=== PATIENT | female | born 1965 | race Caucasian/White ===

== ENCOUNTER → 2017-05-18 | Outpatient (CLI) | payer OTHER ==
[~2017-05-18] MED LIST: ACET-2267 PO; ACHD5005 PO; AMOX500C2 PO; ATEN-155 PO; AZTH250C PO; ENAL2.5T PO; FURO40TA4 PO; GUAI118L10 PO; IBUP-30 PO; IPRA15SP2 NS; LOVA20TA2 PO; METO-333 PO; METO25TA PO; MTF500T PO; MULT1CAP27 PO; MUPI22OI TOP; POTA10TA PO; POTA10TA36 PO; PRD20T PO; SULF200O PO; [UNRECOGNIZED DRUG - CODE] IJ; metformin
== END ==
LOC: CARD 14:59
PROVIDERS: ATTEND Internal Medicine Cardiovascular Disease
DX: I25.10 Atherosclerotic heart disease of native coronary artery without angina pectoris (principal); E13.9 Other specified diabetes mellitus without complications; R06.00 Dyspnea, unspecified; I10 Essential (primary) hypertension; E78.2 Mixed hyperlipidemia
CPT/HCPCS: 93306

== ENCOUNTER 2018-10-02 12:30 | Emergency (ER) | payer SELFPAY ==
[~2018-10-02] VITALS: Ht 170.2 cm; Wt 86.2 kg
--- OUTSIDE RECORDS SUMMARY | 2018-10-02 12:36 | XMS REPORT ---
Author Author DORA ROMERO [facility] Address [address] [place] [address] Care Team Providers Care Shoe Lay Out Planner Name Role Phone DORA ROMERO Unavailable PROBLEMS Type Condition ICD9-CM Code VUJ34-GD Code Onset Dates Condition Status SNOMED Code Problem CHF (congestive heart failure) I50.9 Active 28567690 Problem Non-ischemic cardiomyopathy I42.9 Active [id number] ALLERGIES No Information ENCOUNTERS Encounter Location Date Diagnosis [facility] [id number] [place] [address] 78812- 4825 Dec, CHF (congestive heart failure) I50.9 [facility] [id number] [place] [address] 29870- 5108 Oct, [facility] [id number] [place] [address] 29675- 4620 Aug, CHF (congestive heart failure) I50.9 [facility] [id number] [place] [address] 70874- 9293 22 Aug, 2017 Dysuria R30.0 and Acute cystitis without hematuria N30.00 [facility] [id number] [place] [address] 85480- 5224 15 Aug, 2017 CHF (congestive heart failure) I50.9 [facility] [id number] [place] [address] 26406- 7091 Jul, CHF (congestive heart failure) I50.9 [facility] [id number] [place] [address] 35322- 7174 Jun, CHF (congestive heart failure) I50.9 [facility] [id number] [place] [address] 70234- 4602 Jun, CHF (congestive heart failure) I50.9 [facility] [address] [place] [address] 13718- 5787 May, CHF (congestive heart failure) I50.9 [facility] [id number] [place] [address] 45151- 8427 Apr, CHF (congestive heart failure) I50.9 [facility] [id number] [place] [address] 95358- 8273 Dec, CHF (congestive heart failure) I50.9 and Non-ischemic cardiomyopathy I42.9 [facility] [id number] [place] [address] 64681- 7727 Dec, CHF (congestive heart failure) I50.9 and Non-ischemic cardiomyopathy I42.9 [facility] [id number] [place] [address] 61188- 7521 Oct, Non-ischemic cardiomyopathy I42.9 and CHF (congestive heart failure) I50.9 [facility] [id number] [place] [address] 92542- 3205 Oct, [facility] [id number] [place] [address] 62714- 5384 Aug, CHF (congestive heart failure) I50.9 ; Non-ischemic cardiomyopathy I42.9 and Hidradenitis axillaris L73.2 [facility] [id number] [place] [address] 11362- 0999 Jul, [facility] [id number] [place] [address] 18996- 9595 May, Nasal congestion R09.81 ; Wheezing R06.2 and Hidradenitis axillaris L73.2 [facility] [id number] [place] [address] 53787- 9989 Mar, [facility] [id number] [place] [address] 02972- 6052 Dec, [facility] [id number] [address]- 5127 Dec, CHF (congestive heart failure) I50.9 and Non-ischemic cardiomyopathy I42.9 [facility] [address] [place] [address]- 0119 Aug, [facility] [address] [place] [address]- 0397 Aug, CHF (congestive heart failure) I50.9 and Non-ischemic cardiomyopathy I42.9 [facility] [address] [place] [address]- 6467 Oct, [facility] [address] [place] [address]- 2309 Oct, [facility] [address] [place] [address]- 9347 Aug, [facility] [address] [place] [address]- 8406 Aug, [facility] [address] [place] [address]- 8530 Aug, [facility] [address] [address]- 0472 Aug, IMMUNIZATIONS No Known Immunizations SOCIAL HISTORY Never Assessed REASON FOR VISIT Repository Medication PLAN OF CARE VITAL SIGNS MEDICATIONS Medication Instructions Dosage Frequency Start Date End Date Duration Status Furosemide 40 mg Orally Once a day 1 tablet 24h Active Losartan Potassium 25 MG Orally Once a day 1 tablet 24h Jun, Active Metoprolol Tartrate 25 MG Orally Twice a day 1 tablet with food 12h Active RESULTS No Results PROCEDURES No Known procedures INSTRUCTIONS MEDICATIONS ADMINISTERED No Known Medications MEDICAL (GENERAL) HISTORY Type Description Date Medical History CHF Medical History type II diabetes Medical History hypertension Surgical History cleft pallet repair Surgical History tonsillectomy Surgical History Surgical History tubal ligation Hospitalization History Hospitalization History childbirth x 3 Hospitalization History CHF
--- OUTSIDE RECORDS SUMMARY | 2018-10-02 12:36 | XMS REPORT ---
Author Author DORA ROMERO [facility] Address [address] [place] [address] Care Team Providers Care Sonar Watchstander Name Role Phone DORA ROMERO Unavailable PROBLEMS Type Condition ICD9-CM Code JIO21-SU Code Onset Dates Condition Status SNOMED Code Problem CHF (congestive heart failure) I50.9 Active [id number] Problem Non-ischemic cardiomyopathy I42.9 Active [id number] ALLERGIES No Information ENCOUNTERS Encounter Location Date Diagnosis [facility] [address] 87951- 0008 Apr, [facility] [address] 75830- 1877 Apr, CHF (congestive heart failure) I50.9 [facility] [address] 92572- 2604 Mar, [facility] [address] 67921- 8814 Dec, CHF (congestive heart failure) I50.9 [facility] [id number] [place] [address] 64862- 7462 Oct, [facility] [address] 98032- 8526 Aug, CHF (congestive heart failure) I50.9 [facility] [address] 98931- 1975 Aug, Dysuria R30.0 and Acute cystitis without hematuria N30.00 [facility] [id number] [place] [address] 41255- 9465 Aug, CHF (congestive heart failure) I50.9 [facility] [address], [place] [address]- 4928 Jul, CHF (congestive heart failure) I50.9 [facility] [address], [place] [address]- 0466 Jun, CHF (congestive heart failure) I50.9 [facility] [address], [place] [address]- 6826 Jun, CHF (congestive heart failure) I50.9 [facility] [id number] [address]- 4995 May, CHF (congestive heart failure) I50.9 [facility] [id number] [place] [address] 08244- 6286 Apr, CHF (congestive heart failure) I50.9 [facility] [address] [place] [address] 01536- 0787 Dec, CHF (congestive heart failure) I50.9 and Non-ischemic cardiomyopathy I42.9 [facility] [address], [place] [address]- 6295 Dec, CHF (congestive heart failure) I50.9 and Non-ischemic cardiomyopathy I42.9 [facility] [address], [place] [address]- 8708 Oct, Non-ischemic cardiomyopathy I42.9 and CHF (congestive heart failure) I50.9 [facility] [address], [place] [address]- 4180 Oct, [facility] [address], [place] [address]- 2799 Aug, CHF (congestive heart failure) I50.9 ; Non-ischemic cardiomyopathy I42.9 and Hidradenitis axillaris L73.2 [facility] [address], [place] [address]- 9875 Jul, [facility] [id number] [place] [address] 54899- 2587 May, Nasal congestion R09.81 ; Wheezing R06.2 and Hidradenitis axillaris L73.2 [facility] [id number] [place] [address] 45341- 1937 Mar, [facility] [id number] [place] [address] 13651- 5832 Dec, [facility] [id number] [place] [address] 87386- 9903 Dec, CHF (congestive heart failure) I50.9 and Non-ischemic cardiomyopathy I42.9 [facility] [address] 36719- 4498 Aug, [facility] [id number] [place] [address] 31093- 5359 Aug, CHF (congestive heart failure) I50.9 and Non-ischemic cardiomyopathy I42.9 [facility] [id number] [place] [address] 56184- 5695 Oct, [facility] [id number] [place] [address] 18668- 8699 Oct, [facility] [id number] [place] [address] 94232- 7834 Aug, [facility] [id number] [place] [address] 89678- 4020 Aug, [facility] [id number] [place] [address] 44857- 3333 Aug, [facility] [id number] [place] [address] 86956- 5144 Aug, IMMUNIZATIONS No Known Immunizations SOCIAL HISTORY Never Assessed REASON FOR VISIT Repository Medication PLAN OF CARE VITAL SIGNS MEDICATIONS Medication Instructions Dosage Frequency Start Date End Date Duration Status Metoprolol Tartrate 25 MG Orally Twice a day 1 tablet with food 12h Active Potassium Chloride Karmen ER 10 MEQ Orally Once a day 1 tablet with food 24h Active Furosemide 40 mg Orally Once a day 1 tablet 24h Active Losartan Potassium 25 MG Orally Once a day 1 tablet 24h Jun, Active RESULTS No Results PROCEDURES No Known procedures INSTRUCTIONS MEDICATIONS ADMINISTERED No Known Medications MEDICAL (GENERAL) HISTORY Type Description Date Medical History CHF Medical History type II diabetes Medical History hypertension Surgical History cleft pallet repair Surgical History tonsillectomy Surgical History Surgical History tubal ligation Hospitalization History Hospitalization History childbirth x 3 Hospitalization History CHF
--- OUTSIDE RECORDS SUMMARY | 2018-10-02 12:36 | XMS REPORT ---
Author Author DORA ROMERO [facility] Address [address] [place] [address] Care Team Providers Care Salesperson Terrazzo T[employer] Name Role Phone DORA ROMERO Unavailable PROBLEMS Type Condition ICD9-CM Code DFF04-OG Code Onset Dates Condition Status SNOMED Code Problem CHF (congestive heart failure) I50.9 Active 85778125 Problem Non-ischemic cardiomyopathy I42.9 Active 58421255 ALLERGIES No Information ENCOUNTERS Encounter Location Date Diagnosis [facility] [id number] [place] [address] 02028- 5916 Dec, CHF (congestive heart failure) I50.9 [facility] [id number] [place] [address] 95301- 1581 Oct, [facility] [id number] [place] [address] 36836- 5958 Aug, CHF (congestive heart failure) I50.9 [facility] [id number] [place] [address] 20383- 3236 22 Aug, 2017 Dysuria R30.0 and Acute cystitis without hematuria N30.00 [facility] [id number] [place] [address] 75276- 8977 15 Aug, 2017 CHF (congestive heart failure) I50.9 [facility] [id number] [place] [address] 96887- 6610 Jul, CHF (congestive heart failure) I50.9 [facility] [id number] [place] [address] 87186- 3695 Jun, CHF (congestive heart failure) I50.9 [facility] [id number] [place] [address] 83367- 6843 Jun, CHF (congestive heart failure) I50.9 [facility] [address] [place] [address] 32687- 0985 May, CHF (congestive heart failure) I50.9 [facility] [id number] [place] [address] 09629- 9460 Apr, CHF (congestive heart failure) I50.9 [facility] [id number] [place] [address] 82191- 0901 Dec, CHF (congestive heart failure) I50.9 and Non-ischemic cardiomyopathy I42.9 [facility] [id number] [place] [address] 87590- 5642 Dec, CHF (congestive heart failure) I50.9 and Non-ischemic cardiomyopathy I42.9 [facility] [id number] [place] [address] 67820- 6908 Oct, Non-ischemic cardiomyopathy I42.9 and CHF (congestive heart failure) I50.9 [facility] [id number] [place] [address] 83463- 3131 Oct, [facility] [id number] [place] [address] 20608- 7494 Aug, CHF (congestive heart failure) I50.9 ; Non-ischemic cardiomyopathy I42.9 and Hidradenitis axillaris L73.2 [facility] [id number] [place] [address] 22602- 8291 Jul, [facility] [id number] [place] [address] 34986- 7935 May, Nasal congestion R09.81 ; Wheezing R06.2 and Hidradenitis axillaris L73.2 [facility] [address] [place] [address] 64070- 9981 Mar, [facility] [id number] [place] [address] 34558- 4189 Dec, [facility] [address], [place] [address]- 1988 Dec, CHF (congestive heart failure) I50.9 and Non-ischemic cardiomyopathy I42.9 [facility] [address], [place] [address]- 0505 Aug, [facility] [address], [place] [address]- 0002 Aug, CHF (congestive heart failure) I50.9 and Non-ischemic cardiomyopathy I42.9 [facility] [address], [place] [address]- 0694 Oct, [facility] [address] [place] [address] 48164- 2720 Oct, [facility] [address] [place] [address] 37586- 1879 Aug, [facility] [address], [place] [address]- 1031 Aug, [facility] [address], [place] [address]- 9508 Aug, [facility] [address], [place] [address]- 1495 Aug, IMMUNIZATIONS No Known Immunizations SOCIAL HISTORY Never Assessed REASON FOR VISIT PLAN OF CARE VITAL SIGNS MEDICATIONS Medication Instructions Dosage Frequency Start Date End Date Duration Status Losartan Potassium 25 MG Orally Once a [...]
--- OUTSIDE RECORDS SUMMARY | 2018-10-02 12:36 | XMS REPORT ---
Author Author Migration, Doctor Organization [facility] Address Unknown Phone Unavailable Care Team Providers Care Systems Integration Manager Name Role Phone Migration, Doctor Unavailable Unavailable PROBLEMS Type Condition ICD9-CM Code BJM46-LL Code Onset Dates Condition Status SNOMED Code Problem Non-ischemic cardiomyopathy I42.9 Active 21387552 Problem CHF (congestive heart failure) I50.9 Active 02753586 ALLERGIES No Information ENCOUNTERS Encounter Location Date Diagnosis [facility] [id number] [place] [address] 21969- 6393 October, [facility] [id number] [place] [address] 50318- 7084 Aug, CHF (congestive heart failure) I50.9 [facility] [id number] [place] [address] 96983- 9154 Jul, CHF (congestive heart failure) I50.9 [facility] [id number] [place] [address] 27950- 0310 Jun, [facility] [id number] [place] [address] 84434- 5475 Apr, CHF (congestive heart failure) I50.9 [facility] [id number] [place] [address] 99763- 5649 Mar, [facility] [id number] [place] [address] 75980- 1028 Dec, CHF (congestive heart failure) I50.9 [facility] [id number] [place] [address] 76141- 3332 Oct, [facility] [id number] [place] [address] 64147- 4172 Aug, CHF (congestive heart failure) I50.9 [facility] [address], [place] [address]- 3454 22 Aug, 2017 Dysuria R30.0 and Acute cystitis without hematuria N30.00 [facility] [id number] [place] [address] 89334- 4208 15 Aug, 2017 CHF (congestive heart failure) I50.9 [facility] [id number] [place] [address] 08421- 5222 Jul, CHF (congestive heart failure) I50.9 [facility] [id number] [place] [address] 39459- 4089 Jun, CHF (congestive heart failure) I50.9 [facility] [id number] [place] [address] 07783- 1275 Jun, CHF (congestive heart failure) I50.9 [facility] [id number] [place] [address] 89865- 8362 May, CHF (congestive heart failure) I50.9 [facility] [id number] [place] [address] 77910- 2523 Apr, CHF (congestive heart failure) I50.9 [facility] [id number] [place] [address] 40103- 1441 Dec, CHF (congestive heart failure) I50.9 and Non-ischemic cardiomyopathy I42.9 [facility] [id number] [place] [address] 69587- 2433 Dec, CHF (congestive heart failure) I50.9 and Non-ischemic cardiomyopathy I42.9 [facility] [id number] [place] [address] 91619- 1436 Oct, Non-ischemic cardiomyopathy I42.9 and CHF (congestive heart failure) I50.9 [facility] [id number] [place] [address] 12282- 5216 Oct, [facility] [id number] [place] [address] 19224- 3337 Aug, CHF (congestive heart failure) I50.9 ; Non-ischemic cardiomyopathy I42.9 and Hidradenitis axillaris L73.2 [facility] [address] [place] [address]- 8951 Jul, [facility] [address], [place] [address]- 8386 May, Nasal congestion R09.81 ; Wheezing R06.2 and Hidradenitis axillaris L73.2 [facility] [address], [place] [address]- 9197 Mar, [facility] [id number] [place] [address] 36149- 7560 Dec, [facility] [id number] [place] [address] 08399- 7393 Dec, CHF (congestive heart failure) I50.9 and Non-ischemic cardiomyopathy I42.9 [facility] [address], [place] [address]- 5524 Aug, [facility] [address] [address]- 2766 Aug, CHF (congestive heart failure) I50.9 and Non-ischemic cardiomyopathy I42.9 [facility] [address], [place] [address]- 8598 Oct, [facility] [address], [place] [address]- 8564 Oct, [facility] [address], [place] [address]- 6382 Aug, [facility] [address], [place] [address]- 8994 Aug, [facility] [address], [place] [address]- 5539 Aug, [facility] [address] [facility] [id number] [address]- 2479 Aug, IMMUNIZATIONS No Known Immunizations SOCIAL HISTORY Never Assessed REASON FOR VISIT [facility]MR-[facility] PLAN OF CARE VITAL SIGNS MEDICATIONS Medication Instructions Dosage Frequency Start Date End Date Duration Status Zofran ODT 4 mg take 1 tablets by Oral route every 8 hours PRN Nausea or Vomiting Aug, Active RESULTS No Results PROCEDURES No Known procedures INSTRUCTIONS MEDICATIONS ADMINISTERED No Known Medications MEDICAL (GENERAL) HISTORY Type Description Date Medical History CHF Medical History type II diabetes Medical History hypertension Surgical History cleft pallet repair Surgical History tonsillectomy Surgical History Surgical History tubal ligation Hospitalization History Hospitalization History childbirth x 3 Hospitalization History CHF
--- OUTSIDE RECORDS SUMMARY | 2018-10-02 12:36 | XMS REPORT ---
Author Author DORA ROMERO [facility] Address [address] [place] [address] Care Team Providers Care Storekeeper Helper Name Role Phone DORA ROMERO Unavailable PROBLEMS Type Condition ICD9-CM Code [id number] Code Onset Dates Condition Status SNOMED Code Problem CHF (congestive heart failure) I50.9 Active 48489660 Problem Non-ischemic cardiomyopathy I42.9 Active 25061188 ALLERGIES No Information ENCOUNTERS Encounter Location Date Diagnosis [facility] [address] [address]- [address] Mar, [facility] [address] 70250- 2427 Dec, CHF (congestive heart failure) I50.9 [facility] [id number] [place] [address] 13157- 0618 Oct, [facility] [address] 81558- 5174 Aug, CHF (congestive heart failure) I50.9 [facility] [id number] [place] [address] 84560- 0075 Aug, Dysuria R30.0 and Acute cystitis without hematuria N30.00 [facility] [id number] [place] [address] 42359- 5804 Aug, CHF (congestive heart failure) I50.9 [facility] [id number] [place] [address] 19512- 7324 Jul, CHF (congestive heart failure) I50.9 [facility] [id number] [place] [address] 18672- 4373 Jun, CHF (congestive heart failure) I50.9 [facility] [address] [address] 28[address] Jun, CHF (congestive heart failure) I50.9 [facility] [id number] [place] [address] 96363- 4053 May, CHF (congestive heart failure) I50.9 [facility] [id number] [place] [address] 85705- 5488 Apr, CHF (congestive heart failure) I50.9 [facility] [id number] [place] [address] 02748- 0847 Dec, CHF (congestive heart failure) I50.9 and Non-ischemic cardiomyopathy I42.9 [facility] [id number] [place] [address] 61905- 9959 Dec, CHF (congestive heart failure) I50.9 and Non-ischemic cardiomyopathy I42.9 [facility] [id number] [place] [address] 99250- 0759 Oct, Non-ischemic cardiomyopathy I42.9 and CHF (congestive heart failure) I50.9 [facility] [id number] [place] [address] 21324- 8440 Oct, [facility] [id number] [place] [address] 57967- 6815 Aug, CHF (congestive heart failure) I50.9 ; Non-ischemic cardiomyopathy I42.9 and Hidradenitis axillaris L73.2 [place] [id number] [place] [address] 43361- 4908 Jul, [facility] [id number] [place] [address] 65592- 5832 May, Nasal congestion R09.81 ; Wheezing R06.2 and Hidradenitis axillaris L73.2 [facility] [id number] [place] [address] 04866- 4201 Mar, [facility] [address] [address]- 00[address] Dec, [facility] [address] [place] [address] 14805- 0075 Dec, CHF (congestive heart failure) I50.9 and Non-ischemic cardiomyopathy I42.9 [facility] [address] [place] [address] 14772- 4062 Aug, [facility] [id number] [place] [address] 84400- 9087 Aug, CHF (congestive heart failure) I50.9 and Non-ischemic cardiomyopathy I42.9 [facility] [address] [place] [address] 06423- 8674 Oct, [facility] [id number] [place] [address] 68023- 5700 Oct, [facility] [id number] [place] [address] 36547- 9166 Aug, [facility] [address] [place] [address] 95370- 9154 Aug, [facility] [id number] [address]- 6604 Aug, [facility] [address] [address]- 8827 Aug, IMMUNIZATIONS No Known Immunizations SOCIAL HISTORY Never Assessed REASON FOR VISIT Refill request PLAN OF CARE VITAL SIGNS MEDICATIONS Unknown Medications RESULTS No Results PROCEDURES No Known procedures INSTRUCTIONS MEDICATIONS ADMINISTERED No Known Medications MEDICAL (GENERAL) HISTORY Type Description Date Medical History CHF Medical History type II diabetes Medical History hypertension Surgical History cleft pallet repair Surgical History tonsillectomy Surgical History Surgical History tubal ligation Hospitalization History Hospitalization History childbirth x 3 Hospitalization History CHF
--- OUTSIDE RECORDS SUMMARY | 2018-10-02 12:37 | XMS REPORT ---
Author Author DORA ROMERO [facility] Address [address] [place] [address] Care Team Providers Care Apprentice Lineman Third Step Name Role Phone DORA ROMERO Unavailable PROBLEMS Type Condition ICD9-CM Code [id number] Code Onset Dates Condition Status SNOMED Code Problem CHF (congestive heart failure) I50.9 Active 76001746 Problem Non-ischemic cardiomyopathy I42.9 Active [id number] ALLERGIES No Information ENCOUNTERS Encounter Location Date Diagnosis [facility] [id number] [place] [address] 33139- 4278 Dec, CHF (congestive heart failure) I50.9 [facility] [id number] [place] [address] 83971- 7414 Oct, [facility] [id number] [place] [address] 53710- 3681 Aug, CHF (congestive heart failure) I50.9 [facility] [id number] [place] [address] 59243- 9263 22 Aug, 2017 Dysuria R30.0 and Acute cystitis without hematuria N30.00 [facility] [id number] [place] [address] 07818- 0184 15 Aug, 2017 CHF (congestive heart failure) I50.9 [facility] [id number] [place] [address] 96693- 4714 Jul, CHF (congestive heart failure) I50.9 [facility] [id number] [place] [address] 07304- 1374 Jun, CHF (congestive heart failure) I50.9 [facility] [id number] [place] [address] 71686- 6628 Jun, CHF (congestive heart failure) I50.9 [facility] [address] [place] [address] 12193- 3618 May, CHF (congestive heart failure) I50.9 [facility] [id number] [place] [address] 96807- 2995 Apr, CHF (congestive heart failure) I50.9 [facility] [id number] [place] [address] 33014- 0529 Dec, CHF (congestive heart failure) I50.9 and Non-ischemic cardiomyopathy I42.9 [facility] [id number] [place] [address] 38947- 2646 Dec, CHF (congestive heart failure) I50.9 and Non-ischemic cardiomyopathy I42.9 [facility] [id number] [place] [address] 19838- 7313 Oct, Non-ischemic cardiomyopathy I42.9 and CHF (congestive heart failure) I50.9 [facility] [id number] [place] [address] 95229- 3095 Oct, [facility] [id number] [place] [address] 24319- 1924 Aug, CHF (congestive heart failure) I50.9 ; Non-ischemic cardiomyopathy I42.9 and Hidradenitis axillaris L73.2 [facility] [id number] [place] [address] 48199- 2717 Jul, [facility] [id number] [place] [address] 36101- 6273 May, Nasal congestion R09.81 ; Wheezing R06.2 and Hidradenitis axillaris L73.2 [facility] [address] [place] [address] 97072- 1358 Mar, [facility] [id number] [place] [address] 47351- 7694 Dec, [facility] [address], [place] [address]- 9968 Dec, CHF (congestive heart failure) I50.9 and Non-ischemic cardiomyopathy I42.9 [facility] [address] [place] [address]- 0692 Aug, [facility] [address] [place] [address]- 7810 Aug, CHF (congestive heart failure) I50.9 and Non-ischemic cardiomyopathy I42.9 [facility] [address], [place] [address]- 1238 Oct, [facility] [address] [place] [address] 34093- 6779 Oct, [facility] [address] [place] [address] 96914- 2004 Aug, [facility] [address], [place] [address]- 7458 Aug, [facility] [address], [place] [address]- 1566 Aug, [facility] [address], [place] [address]- 5188 Aug, IMMUNIZATIONS No Known Immunizations SOCIAL HISTORY Never Assessed REASON FOR VISIT Repository Medication PLAN OF CARE VITAL SIGNS MEDICATIONS Medication Instructions Dosage Frequency Start Date End Date Duration Status Furosemide 40 mg Orally Once a day 1 tablet 24h Active RESULTS No Results PROCEDURES No Known procedures INSTRUCTIONS MEDICATIONS ADMINISTERED No Known Medications MEDICAL (GENERAL) HISTORY Type Description Date Medical History CHF Medical History type II diabetes Medical History hypertension Surgical History cleft pallet repair Surgical History tonsillectomy Surgical History Surgical History tubal ligation Hospitalization History Hospitalization History childbirth x 3 Hospitalization History CHF
--- OUTSIDE RECORDS SUMMARY | 2018-10-02 12:37 | XMS REPORT ---
Author Author DORA ROMERO [facility] Address [address] [place] [address] Care Team Providers Care Licensed Clinical Social Worker Name Role Phone DORA ROMERO Unavailable PROBLEMS Type Condition ICD9-CM Code PNP90-WF Code Onset Dates Condition Status SNOMED Code Problem CHF (congestive heart failure) I50.9 Active 66159004 Problem Non-ischemic cardiomyopathy I42.9 Active 15977359 ALLERGIES No Information ENCOUNTERS Encounter Location Date Diagnosis [facility] [id number] [place] [address] 10327- 8379 Dec, CHF (congestive heart failure) I50.9 [facility] [id number] [place] [address] 83764- 3572 Oct, [facility] [id number] [place] [address] 22148- 9550 Aug, CHF (congestive heart failure) I50.9 [facility] [id number] [place] [address] 00157- 4408 22 Aug, 2017 Dysuria R30.0 and Acute cystitis without hematuria N30.00 [facility] [id number] [place] [address] 33023- 4578 15 Aug, 2017 CHF (congestive heart failure) I50.9 [facility] [id number] [place] [address] 77588- 9908 Jul, CHF (congestive heart failure) I50.9 [facility] [id number] [place] [address] 65625- 0544 Jun, CHF (congestive heart failure) I50.9 [facility] [id number] [place] [address] 88626- 9293 Jun, CHF (congestive heart failure) I50.9 [facility] [address] [place] [address] 07831- 9446 May, CHF (congestive heart failure) I50.9 [facility] [id number] [place] [address] 60062- 9283 Apr, CHF (congestive heart failure) I50.9 [facility] [id number] [place] [address] 96490- 1332 Dec, CHF (congestive heart failure) I50.9 and Non-ischemic cardiomyopathy I42.9 [facility] [id number] [place] [address] 46191- 3054 Dec, CHF (congestive heart failure) I50.9 and Non-ischemic cardiomyopathy I42.9 [facility] [id number] [place] [address] 59075- 0771 Oct, Non-ischemic cardiomyopathy I42.9 and CHF (congestive heart failure) I50.9 [facility] [id number] [place] [address] 41936- 2742 Oct, [facility] [id number] [place] [address] 55180- 0171 Aug, CHF (congestive heart failure) I50.9 ; Non-ischemic cardiomyopathy I42.9 and Hidradenitis axillaris L73.2 [facility] [id number] [place] [address] 58960- 9171 Jul, [facility] [id number] [place] [address] 21568- 2329 May, Nasal congestion R09.81 ; Wheezing R06.2 and Hidradenitis axillaris L73.2 [facility] [address] [place] [address] 75140- 4381 Mar, [facility] [id number] [place] [address] 83966- 7640 Dec, [facility] [address] [address]- 7264 Dec, CHF (congestive heart failure) I50.9 and Non-ischemic cardiomyopathy I42.9 [facility] [address] [address]- 5682 Aug, [facility] [address], [place] [address]- 3381 Aug, CHF (congestive heart failure) I50.9 and Non-ischemic cardiomyopathy I42.9 [facility] [address], [place] [address]- 2343 Oct, [facility] [id number] [place] [address] 74145- 3255 Oct, [facility] [address], [place] [address]- 7553 Aug, [facility] [address], [place] [address]- 3453 Aug, [facility] [id number], [place] [address]- 8497 Aug, [facility] [address], [place] [address]- 0593 Aug, IMMUNIZATIONS No Known Immunizations SOCIAL HISTORY Never Assessed REASON FOR VISIT Repository Medication PLAN OF CARE VITAL SIGNS MEDICATIONS Medication Instructions Dosage Frequency Start Date End Date Duration Status Potassium Chloride Karmen ER 10 MEQ Orally Once a day 1 tablet with food 24h Active Metoprolol Tartrate 25 MG Orally Twice a day 1 tablet with food 12h 30 Active Furosemide 40 mg Orally Once a [...]
--- OUTSIDE RECORDS SUMMARY | 2018-10-02 12:37 | XMS REPORT ---
Author Author DORA ROMERO Organization [facility] Address [address] [place] [address] Care Team Providers Care Supply Tech Name Role Phone DORA ROMERO Unavailable PROBLEMS Type Condition ICD9-CM Code [id number] Code Onset Dates Condition Status SNOMED Code Problem CHF (congestive heart failure) I50.9 Active 82269940 Problem Non-ischemic cardiomyopathy I42.9 Active 52155827 ALLERGIES No Information ENCOUNTERS Encounter Location Date Diagnosis [facility] [id number] [place] [address] 40562- 4360 Oct, [place] [address] 72269- 4115 Aug, CHF (congestive heart failure) I50.9 [facility] [id number] [place] [address] 61623- 6085 Aug, Dysuria R30.0 and Acute cystitis without hematuria N30.00 [facility] [id number] [place] [address] 33359- 3485 Aug, CHF (congestive heart failure) I50.9 [facility] [id number] [place] [address] 32302- 0272 Jul, CHF (congestive heart failure) I50.9 [facility] [id number] [place] [address] 65323- 3401 Jun, CHF (congestive heart failure) I50.9 [facility] [id number] [place] [address] 32631- 8181 Jun, CHF (congestive heart failure) I50.9 [facility] [id number] [place] [address] 00752- 5790 May, CHF (congestive heart failure) I50.9 [facility] [address] [address]- 6620 Apr, CHF (congestive heart failure) I50.9 [facility] [id number] [place] [address] 66096- 5184 Dec, CHF (congestive heart failure) I50.9 and Non-ischemic cardiomyopathy I42.9 [facility] [id number] [place] [address] 18200- 6956 Dec, CHF (congestive heart failure) I50.9 and Non-ischemic cardiomyopathy I42.9 [facility] [id number] [place] [address] 18594- 0315 Oct, Non-ischemic cardiomyopathy I42.9 and CHF (congestive heart failure) I50.9 [facility] [id number] [place] [address] 47922- 2920 Oct, [facility] [id number] [place] [address] 35196- 2576 Aug, CHF (congestive heart failure) I50.9 ; Non-ischemic cardiomyopathy I42.9 and Hidradenitis axillaris L73.2 [place] [address] [place] [address] 87462- 3036 Jul, [facility] [id number] [place] [address] 48710- 4498 May, Nasal congestion R09.81 ; Wheezing R06.2 and Hidradenitis axillaris L73.2 [place] [id number] [place] [address] 10055- 8834 Mar, [place] [id number] [place] [address] 27289- 2226 Dec, [facility] [id number] [place] [address] 81250- 5406 Dec, CHF (congestive heart failure) I50.9 and Non-ischemic cardiomyopathy I42.9 [facility] [address] [address]- 5378 Aug, [facility] [address] [address]- 0937 Aug, CHF (congestive heart failure) I50.9 and Non-ischemic cardiomyopathy I42.9 [facility] [address] [address]- 5366 Oct, [facility] [address] [place] [address] 61329- 4174 Oct, [facility] [id number] [place] [address] 42309- 9260 Aug, [facility] [id number] [place] [address] 01600- 4209 Aug, [facility] [address] [place] [address] 69974- 8326 Aug, [facility] [address], [place] [address]- 0985 Aug, IMMUNIZATIONS No Known Immunizations SOCIAL HISTORY Never Assessed REASON FOR VISIT Repository Medication PLAN OF CARE VITAL SIGNS MEDICATIONS Medication Instructions Dosage Frequency Start Date End Date Duration Status Furosemide 40 mg Orally Once a day 1 tablet 24h Active Metoprolol Tartrate 25 MG Orally Twice a day 1 tablet with food 12h Active Enalapril Maleate 2.5 MG Orally Once a day 1 tablet 24h Active Potassium Chloride Karmen ER 10 MEQ Orally Once a day 1 tablet with food 24h Active RESULTS No Results PROCEDURES No Known procedures INSTRUCTIONS MEDICATIONS ADMINISTERED No Known Medications MEDICAL (GENERAL) HISTORY Type Description Date Medical History CHF Medical History type II diabetes Medical History hypertension Surgical History cleft pallet repair Surgical History tonsillectomy Surgical History Surgical History tubal ligation Hospitalization History Hospitalization History childbirth x 3 Hospitalization History CHF
--- OUTSIDE RECORDS SUMMARY | 2018-10-02 12:37 | XMS REPORT ---
Author Author DORA ROMERO [facility] Address [address] [place] [address] Care Team Providers Care Emulsification Operator Name Role Phone DORA ROMERO Unavailable PROBLEMS Type Condition ICD9-CM Code MVY07-OA Code Onset Dates Condition Status SNOMED Code Problem CHF (congestive heart failure) I50.9 Active 45116103 Problem Non-ischemic cardiomyopathy I42.9 Active 96195369 ALLERGIES No Known Allergies ENCOUNTERS Encounter Location Date Diagnosis [place] [id number] [place] [address] 53152- 7462 Dec, CHF (congestive heart failure) I50.9 [facility] [id number] [place] [address] 97150- 6258 Oct, [facility] [id number] [place] [address] 13373- 9505 Aug, CHF (congestive heart failure) I50.9 [facility] [id number] [place] [address] 81144- 5169 22 Aug, 2017 Dysuria R30.0 and Acute cystitis without hematuria N30.00 [facility] [id number] [place] [address] 86676- 8249 15 Aug, 2017 CHF (congestive heart failure) I50.9 [facility] [id number] [place] [address] 99752- 3282 Jul, CHF (congestive heart failure) I50.9 [facility] [id number] [place] [address] 93831- 0586 Jun, CHF (congestive heart failure) I50.9 [facility] [id number] [place] [address] 18926- 7025 Jun, CHF (congestive heart failure) I50.9 [facility] [address] [place] [address] 91783- 8125 May, CHF (congestive heart failure) I50.9 [facility] [id number] [place] [address] 42612- 7218 Apr, CHF (congestive heart failure) I50.9 [facility] [id number] [place] [address] 83847- 7265 Dec, CHF (congestive heart failure) I50.9 and Non-ischemic cardiomyopathy I42.9 [facility] [id number] [place] [address] 70145- 2201 Dec, CHF (congestive heart failure) I50.9 and Non-ischemic cardiomyopathy I42.9 [facility] [id number] [place] [address] 11324- 6257 Oct, Non-ischemic cardiomyopathy I42.9 and CHF (congestive heart failure) I50.9 [facility] [id number] [place] [address] 54364- 5952 Oct, [facility] [id number] [place] [address] 80398- 7708 Aug, CHF (congestive heart failure) I50.9 ; Non-ischemic cardiomyopathy I42.9 and Hidradenitis axillaris L73.2 [facility] [id number] [place] [address] 54502- 4878 Jul, [facility] [id number] [place] [address] 75502- 5143 May, Nasal congestion R09.81 ; Wheezing R06.2 and Hidradenitis ax[address]aris [address]73.2 [facility] [address] [place] [address] 75670- 1631 Mar, [facility] [id number] [place] [address] 76551- 8944 Dec, [facility] [address] [place] [address] 6299 Dec, CHF (congestive heart failure) I50.9 and Non-ischemic cardiomyopathy I42.9 [facility] [address] [place] [address] Aug, [facility] [address] [place] [address] 8700 Aug, CHF (congestive heart failure) I50.9 and Non-ischemic cardiomyopathy I42.9 [facility] [address] [place] [address] Oct, [facility] [id number] [place] [address] 11689- 6780 Oct, [facility] [address] [address] Aug, [facility] [address] [address] Aug, [facility] [address] [place] [address] Aug, [facility] [address] [place] [address] 8368 Aug, IMMUNIZATIONS No Known Immunizations SOCIAL HISTORY Never Assessed REASON FOR VISIT RADHA Herrera RN PLAN OF CARE Activity Details Follow Up prn Reason: VITAL SIGNS Height 67 in 2017-08-24 Weight 195 lbs 2017-08-24 Temperature 98.0 degrees Fahrenheit 2017-08-24 Heart Rate 70 bpm 2017-08-24 Respiratory Rate 22 2017-08-24 BMI 30.54 kg/m2 2017-08-24 Blood pressure systolic 118 mmHg 2017-08-24 Blood pressure diastolic 72 mmHg 2017-08-24 MEDICATIONS Medication Instructions Dosage Frequency Start Date End Date Duration Status Metoprolol Tartrate 25 MG Orally Twice a day 1 tablet with food 12h 30 Active Furosemide 40 mg Orally Once a day 1 tablet 24h Active Potassium Chloride Karmen ER 10 MEQ Orally Once a day 1 tablet with food 24h Active Albuterol Sulfate HFA 108 (90 Base) MCG/ACT Inhalation every 4 hrs 2 puffs as needed 4h May, 1 month Active Losartan Potassium 25 MG Orally Once a day 1 tablet 24h Jun, Active Bactrim DS 800-160 MG Orally Twice a day 1 tablet 12h Aug,Aug 03 days Active Multivitamins Orally daily 24h Active RESULTS Name Result Date Reference Range UA LONG DIP (IN HOUSE) Lot # [id number] Exp date 05/02/2018 Clarity cloudy Color yellow Odor foul GLU Negative BRANDON Negative KET Negative SG 1.020 BLO 3+ pH 5.5 Protein 1+ URO 0.2 NIT Positive STEPHANIE 3+ Lot # Exp date PROCEDURES Procedure Date Ordered Result Body Site URINALYSIS, AUTO, W/O SCOPE Aug 24, 2017 INSTRUCTIONS MEDICATIONS ADMINISTERED No Known Medications MEDICAL (GENERAL) HISTORY Type Description Date Medical History CHF Medical History type II diabetes Medical History hypertension Surgical History cleft pallet repair Surgical History tonsillectomy Surgical History Surgical History tubal ligation Hospitalization History Hospitalization History childbirth x 3 Hospitalization History CHF
--- OUTSIDE RECORDS SUMMARY | 2018-10-02 12:38 | XMS REPORT ---
Author Author DORA ROMERO Organization [facility] Address [address] [place] [address] Care Team Providers Care Manager Orange Name Role Phone DORA ROMERO Unavailable PROBLEMS Type Condition ICD9-CM Code MMP01-VM Code Onset Dates Condition Status SNOMED Code Problem CHF (congestive heart failure) I50.9 Active 25181009 Problem Non-ischemic cardiomyopathy I42.9 Active 19532586 ALLERGIES No Information ENCOUNTERS Encounter Location Date Diagnosis [facility] [id number] [place] [address] 80001- 9999 Oct, [place] [address] 09405- 1379 Aug, CHF (congestive heart failure) I50.9 [facility] [id number] [place] [address] 94298- 3301 Aug, Dysuria R30.0 and Acute cystitis without hematuria N30.00 [facility] [id number] [place] [address] 64239- 5678 Aug, CHF (congestive heart failure) I50.9 [facility] [id number] [place] [address] 62313- 0908 Jul, CHF (congestive heart failure) I50.9 [facility] [id number] [place] [address] 21203- 3504 Jun, CHF (congestive heart failure) I50.9 [facility] [id number] [place] [address] 40254- 3142 Jun, CHF (congestive heart failure) I50.9 [facility] [id number] [place] [address] 30976- 1298 May, CHF (congestive heart failure) I50.9 [facility] [address] [address]- 4409 Apr, CHF (congestive heart failure) I50.9 [facility] [id number] [place] [address] 46221- 3200 Dec, CHF (congestive heart failure) I50.9 and Non-ischemic cardiomyopathy I42.9 [place] [id number] [place] [address] 05743- 9874 Dec, CHF (congestive heart failure) I50.9 and Non-ischemic cardiomyopathy I42.9 [place] [id number] [place] [address] 40152- 0692 Oct, Non-ischemic cardiomyopathy I42.9 and CHF (congestive heart failure) I50.9 [place] [id number] [place] [address] 79930- 8342 Oct, [facility] [id number] [place] [address] 18774- 0226 Aug, CHF (congestive heart failure) I50.9 ; Non-ischemic cardiomyopathy I42.9 and Hidradenitis axillaris L73.2 [place] [address] [place] [address] 02787- 9509 Jul, [place] [id number] [place] [address] 71807- 8983 May, Nasal congestion R09.81 ; Wheezing R06.2 and Hidradenitis axillaris L73.2 [place] [id number] [place] [address] 17849- 4664 Mar, [place] [id number] [place] [address] 17056- 3172 Dec, [facility] [id number] [place] [address] 16875- 2607 Dec, CHF (congestive heart failure) I50.9 and Non-ischemic cardiomyopathy I42.9 [facility] [address] [address]- 3207 Aug, [facility] [address] [address]- 8310 Aug, CHF (congestive heart failure) I50.9 and Non-ischemic cardiomyopathy I42.9 [facility] [address] [address]- 8465 Oct, [facility] [address] [place] [address] 92912- 3602 Oct, [facility] [id number] [place] [address] 62458- 9269 Aug, [facility] [id number] [place] [address] 13962- 9728 Aug, [facility] [address] [place] [address] 24511- 9368 Aug, [facility] [address] [address]- 3271 Aug, IMMUNIZATIONS No Known Immunizations SOCIAL HISTORY Never Assessed REASON FOR VISIT Repository PLAN OF CARE VITAL SIGNS MEDICATIONS Medication [...]
--- OUTSIDE RECORDS SUMMARY | 2018-10-02 12:38 | XMS REPORT ---
Author Author DORA ROMERO [facility] Address [address] [place] [address] Care Team Providers Care Sprinkler Fitter Apprentice Name Role Phone DORA ROMERO Unavailable PROBLEMS Type Condition ICD9-CM Code [id number] Code Onset Dates Condition Status SNOMED Code Problem CHF (congestive heart failure) I50.9 Active 84330706 Problem Non-ischemic cardiomyopathy I42.9 Active 21700259 ALLERGIES No Information ENCOUNTERS Encounter Location Date Diagnosis [facility] [address] [address]- 9571 Dec, [place] [address] 73559- 2719 Dec, CHF (congestive heart failure) I50.9 [facility] [id number] [place] [address] 25168- 4734 Oct, [facility] [address] 84028- 4629 Aug, CHF (congestive heart failure) I50.9 [facility] [id number] [place] [address] 96441- 0640 Aug, Dysuria R30.0 and Acute cystitis without hematuria N30.00 [facility] [id number] [place] [address] 02140- 2601 Aug, CHF (congestive heart failure) I50.9 [facility] [id number] [place] [address] 01998- 7578 Jul, CHF (congestive heart failure) I50.9 [facility] [id number] [place] [address] 40528- 6838 Jun, CHF (congestive heart failure) I50.9 [facility] [address], [place] [address]- 7192 Jun, CHF (congestive heart failure) I50.9 [facility] [id number] [place] [address] 08504- 4344 May, CHF (congestive heart failure) I50.9 [facility] [id number] [place] [address] 00385- 7360 Apr, CHF (congestive heart failure) I50.9 [facility] [id number] [place] [address] 36919- 8572 Dec, CHF (congestive heart failure) I50.9 and Non-ischemic cardiomyopathy I42.9 [facility] [id number] [place] [address] 46551- 2312 Dec, CHF (congestive heart failure) I50.9 and Non-ischemic cardiomyopathy I42.9 [facility] [id number] [place] [address] 59076- 5119 Oct, Non-ischemic cardiomyopathy I42.9 and CHF (congestive heart failure) I50.9 [facility] [id number] [place] [address] 84121- 4724 Oct, [facility] [id number] [place] [address] 59078- 8018 Aug, CHF (congestive heart failure) I50.9 ; Non-ischemic cardiomyopathy I42.9 and Hidradenitis axillaris L73.2 [place] [id number] [place] [address] 41155- 6160 Jul, [facility] [id number] [place] [address] 85019- 9168 May, Nasal congestion R09.81 ; Wheezing R06.2 and Hidradenitis axillaris L73.2 [facility] [id number] [place] [address] 82051- 7224 Mar, [facility] [address], [place] [address]- 9456 Dec, [place] [id number] [place] [address] 00902- 5013 Dec, CHF (congestive heart failure) I50.9 and Non-ischemic cardiomyopathy I42.9 [place] [id number] [place] [address] 51419- 3784 Aug, [facility] [id number] [place] [address] 47801- 7539 Aug, CHF (congestive heart failure) I50.9 and Non-ischemic cardiomyopathy I42.9 [place] [id number] [place] [address] 68194- 1287 Oct, [place] [id number] [place] [address] 61825- 5761 Oct, [place] [id number] [place] [address] 53255- 4542 Aug, [place] [id number] [place] [address] 19776- 4552 Aug, [place] [id number] [place] [address] 45671- 7691 Aug, [place] [address], [place] [address]- 9405 Aug, IMMUNIZATIONS No Known Immunizations SOCIAL HISTORY Never Assessed REASON FOR VISIT repository PLAN OF CARE VITAL SIGNS MEDICATIONS Medication Instructions Dosage Frequency Start Date End Date Duration Status Furosemide 40 mg Orally Once a day 1 tablet 24h Active Potassium Chloride Karmen ER 10 MEQ Orally Once a day 1 tablet with food 24h Active Losartan Potassium 25 MG Orally [...]
--- OUTSIDE RECORDS SUMMARY | 2018-10-02 12:38 | XMS REPORT ---
Author DORA Solorio [facility] [employer] Address Unknown Phone Unavailable Care Team Providers Care Cab Supervisor Name Role Phone DORA ROMERO CP Unavailable Allergies, Adverse Reactions, Alerts Substance Reaction Event Type N.K.D.A. Info Not Available Non Drug Allergy Problems Problem Type Condition Code Onset Dates Condition Status Problem Non-ischemic cardiomyopathy I42.9 Active Assessment CHF (congestive heart failure) I50.9 Active Problem CHF (congestive heart failure) I50.9 Active Assessment Non-ischemic cardiomyopathy I42.9 Active Medications Medication Code System Code Instructions Start Date End Date Status Dosage Multivitamins [facility] [address] Orally daily not defined Metoprolol Tartrate [facility] [address]-31 25 MG Orally Twice a day 1 tablet Furosemide [facility] [address]-49 40 MG Orally Once a day 1 tablet Enalapril Maleate [facility] [address]-90 2.5 MG Orally Once a day 1 tablet Tylenol [facility] [address]-13 500 MG/15ML Orally Twice a day as needed 2-3 tablets Potassium Chloride ER [facility] [address]-78 10 MEQ Orally Once a day 1 tablet with food Procedures Procedure Coding System Code Date VENIPUNCT, ROUTINE* CPT-4 19161 Aug 04, 2015 Office Visit, Est Pt., Level 4 CPT-4 80017 Aug 04, 2015 BASIC METABOLIC PANEL CPT-4 85491 Aug 04, 2015 Vital Signs Date/Time: Aug 04, 2015 Temperature 98.8 F Weight 187 lbs Height 67 in BMI 29.29 Index Blood Pressure Diastolic 90 mmHg Blood Pressure Systolic 130 mmHg Cardiac Monitoring Heart Rate 84 bpm Results Name Result Date Reference Range Unit Abnormality Flag ROUTINE VENIPUNCTURE BMP ----Calcium, Serum 9.4 20150804 8.7-10.2 mg/dL ----Sodium, Serum 138 20150804 134-144 mmol/L ----BUN/Creatinine Ratio 30 20150804 9-23 H ----Chloride, Serum 99 20150804 97-108 mmol/L ----Carbon Dioxide, Total 25 20150804 18-29 mmol/L ----Potassium, Serum 4.3 20150804 3.5-5.2 mmol/L ----eGFR If NonAfricn Am 88 84191720 >59 mL/min/1.73 ----eGFR If Africn Am 101 50455672 >59 mL/min/1.73 ----BUN 24 20150804 6-24 mg/dL ----Creatinine, Serum 0.79 20150804 0.57-1.00 mg/dL ----Glucose, Serum 92 10319607 65-99 mg/dL Summary Purpose [employer]ClinicalWorks Submission
--- OUTSIDE RECORDS SUMMARY | 2018-10-02 12:38 | XMS REPORT ---
Author Author ESTEVAN BERMEO Organization [employer] Address Unknown Phone Unavailable Care Team Providers Care Terrazzo Finisher Helper Name Role Phone ESTEVAN BERMEO CP Unavailable Allergies, Adverse Reactions, Alerts Substance Reaction Event Type N.K.D.A. Info Not Available Non Drug Allergy Problems Problem Type Condition Code Onset Dates Condition Status Problem Non-ischemic cardiomyopathy I42.9 Active Assessment Nasal congestion R09.81 Active Problem CHF (congestive heart failure) I50.9 Active Assessment Wheezing R06.2 Active Assessment Hidradenitis axillaris L73.2 Active Medications Medication Code System Code Instructions Start Date End Date Status Dosage PredniSONE [facility] [address]-06 50 MG Orally Once a day May 05, 2016 May 10, 2016 1 tablet Potassium Chloride Karmen ER [facility] [address]-64 10 MEQ po day TAKE ONE TABLET BY MOUTH ONCE DAILY WITH FOOD Albuterol Sulfate HFA [facility] [address]-97 108 (90 Base) MCG/ACT Inhalation every 4 hrs May 05, 2016 2 puffs as needed Multivitamins [facility] [address]-15799 Orally daily not defined Potassium Chloride ER [facility] 08504524805 10 MEQ Orally Once a day 1 tablet with food Enalapril Maleate [facility] [address]-77 2.5 MG po daily TAKE ONE TABLET BY MOUTH ONCE DAILY Metoprolol Tartrate [facility] [address]-82 25 MG po BID TAKE ONE TABLET BY MOUTH TWICE DAILY Furosemide ND 42597150503 40 MG Orally Once a day 1 tablet Tylenol [facility] [address]-79 500 MG/15ML Orally Twice a day as needed 2-3 tablets Procedures Procedure Coding System Code Date Office Visit, Est Pt., Level 4 CPT-4 85099 May 05, 2016 Vital Signs Date/Time: May 05, 2016 Cardiac Monitoring Heart Rate 80 bpm Weight 189.9 lbs Height 67 in BMI 29.74 Index Blood Pressure Diastolic 82 mmHg Blood Pressure Systolic 127 mmHg Results No Known Results Summary Purpose [employer]ClinicalWorks Submission
--- OUTSIDE RECORDS SUMMARY | 2018-10-02 12:38 | XMS REPORT ---
Author Author DORA ROMERO [facility] e[employer] Address Unknown Phone Unavailable Care Team Providers Care Binder Stripper Machine Name Role Phone DORA ROMERO CP Unavailable Allergies No Known Allergies Problems Problem Type Condition Code Onset Dates Condition Status Problem Non-ischemic cardiomyopathy I42.9 Active Problem CHF (congestive heart failure) I50.9 Active Medications No Known Medications Results No Known Results Summary Purpose [employer]ClinicalWorks Submission
--- OUTSIDE RECORDS SUMMARY | 2018-10-02 12:38 | XMS REPORT ---
Author Author DORA ROMERO [facility] Address [address] [place] [address] Care Team Providers Care Tool Design Draftsperson Name Role Phone DORA ROMERO Unavailable PROBLEMS Type Condition ICD9-CM Code CQM85-PG Code Onset Dates Condition Status SNOMED Code Problem CHF (congestive heart failure) I50.9 Active 67746999 Problem Non-ischemic cardiomyopathy I42.9 Active 19326992 ALLERGIES No Information SOCIAL HISTORY Never Assessed PLAN OF CARE VITAL SIGNS MEDICATIONS Unknown Medications RESULTS Name Result Date Reference Range CMP 2016-12-02 Glucose, Serum 123 65-99 BUN 23 6-24 Creatinine, Serum 0.86 0.57-1.00 eGFR If NonAfricn Am 78 >59 eGFR If Africn Am 90 >59 BUN/Creatinine Ratio 27 9-23 Sodium, Serum 138 134-144 Potassium, Serum 4.5 3.5-5.2 Chloride, Serum 98 96-106 Carbon Dioxide, Total 20 18-29 Calcium, Serum 10.0 8.7-10.2 Protein, Total, Serum 8.2 6.0-8.5 Albumin, Serum 5.2 3.5-5.5 Globulin, Total 3.0 1.5-4.5 A/G Ratio 1.7 1.2-2.2 Bilirubin, Total 0.7 0.0-1.2 Alkaline Phosphatase, S 86 39-117 AST (SGOT) 19 0-40 ALT (SGPT) 18 0-32 PROCEDURES Procedure Date Ordered Result Body Site ROUTINE VENIPUNCTURE 2016-12-02 N/A COMPREHEN METABOLIC PANEL December 02, 2016 IMMUNIZATIONS No Known Immunizations MEDICAL (GENERAL) HISTORY Type Description Date Medical History CHF Medical History type II diabetes Medical History hypertension Surgical History cleft pallet repair Surgical History tonsillectomy Surgical History Surgical History tubal ligation Hospitalization History Hospitalization History childbirth x 3 Hospitalization History CHF
--- OUTSIDE RECORDS SUMMARY | 2018-10-02 12:38 | XMS REPORT ---
Author Author DORA ROMERO Organization [facility] Address [address] [place] [address] Care Team Providers Care Therapy Manager Name Role Phone DORA ROMERO Unavailable PROBLEMS Type Condition ICD9-CM Code LAP13-YL Code Onset Dates Condition Status SNOMED Code Problem CHF (congestive heart failure) I50.9 Active 97487474 Problem Non-ischemic cardiomyopathy I42.9 Active [id number] ALLERGIES No Information ENCOUNTERS Encounter Location Date Diagnosis [facility] [id number] [place] [address] 24619- 7499 Aug, [facility] [address] [address] Aug, Dysuria R30.0 and Acute cystitis without hematuria N30.00 [facility] [id number] [place] [address] 42608- 3773 Aug, CHF (congestive heart failure) I50.9 [facility] [id number] [place] [address] 69383- 3892 Jul, CHF (congestive heart failure) I50.9 [facility] [id number] [place] [address] 13801- 6421 Jun, CHF (congestive heart failure) I50.9 [facility] [id number] [place] [address] 68361- 9682 Jun, CHF (congestive heart failure) I50.9 [facility] [id number] [place] [address] 19797- 2521 May, CHF (congestive heart failure) I50.9 [facility] [id number] [place] [address] 88577- 2457 Apr, CHF (congestive heart failure) I50.9 [facility] [address] [place] [address] 83895- 2820 Dec, CHF (congestive heart failure) I50.9 and Non-ischemic cardiomyopathy I42.9 [facility] [id number] [place] [address] 19421- 8823 Dec, CHF (congestive heart failure) I50.9 and Non-ischemic cardiomyopathy I42.9 [facility] [id number] [place] [address] 10892- 3080 Oct, Non-ischemic cardiomyopathy I42.9 and CHF (congestive heart failure) I50.9 [facility] [id number] [place] [address] 78876- 9492 Oct, [facility] [id number] [place] [address] 03409- 9255 Aug, CHF (congestive heart failure) I50.9 ; Non-ischemic cardiomyopathy I42.9 and Hidradenitis axillaris L73.2 [facility] [id number] [place] [address] 72688- 9895 Jul, [facility] [id number] [place] [address] 63456- 7626 May, Nasal congestion R09.81 ; Wheezing R06.2 and Hidradenitis axillaris L73.2 [facility] [address] [place] [address] 42441- 4303 Mar, [facility] [address] [place] [address] 64510- 6030 Dec, [facility] [id number] [place] [address] 29376- 7230 Dec, CHF (congestive heart failure) I50.9 and Non-ischemic cardiomyopathy I42.9 [facility] [id number] [place] [address] 71326- 9270 Aug, [facility] [id number] [address] Aug, CHF (congestive heart failure) I50.9 and Non-ischemic cardiomyopathy I42.9 [facility] [address] [place] [address] Oct, [facility] [address] [place] [address] 85[address] Oct, [facility] [address] [place] [address] 6[address] Aug, [facility] [address] [place] [address] Aug, [facility] [address] [place] [address] 6[address] Aug, [facility] [address] [place] [address] Aug, IMMUNIZATIONS No Known Immunizations SOCIAL HISTORY Never Assessed REASON FOR VISIT Repository Refill Requests PLAN OF CARE VITAL SIGNS MEDICATIONS Medication [...]
--- OUTSIDE RECORDS SUMMARY | 2018-10-02 12:38 | XMS REPORT ---
Author Author DORA ROMERO Organization [facility] Address [address] [place] [address] Care Team Providers Care Rock Loader Name Role Phone DOAR ROMERO Unavailable PROBLEMS Type Condition ICD9-CM Code [id number] Code Onset Dates Condition Status SNOMED Code Problem CHF (congestive heart failure) I50.9 Active 82065618 Problem Non-ischemic cardiomyopathy I42.9 Active 67190130 ALLERGIES No Information ENCOUNTERS Encounter Location Date Diagnosis [facility] [id number] [place] [address] 28719- 4040 Oct, [id number] [address]- [address]98 Aug, CHF (congestive heart failure) I50.9 [facility] [id number] [place] [address] 09778- 7941 Aug, Dysuria R30.0 and Acute cystitis without hematuria N30.00 [facility] [id number] [place] [address] 74260- 8369 Aug, CHF (congestive heart failure) I50.9 [facility] [id number] [place] [address] 46843- 3534 Jul, CHF (congestive heart failure) I50.9 [facility] [id number] [place] [address] 62677- 7863 Jun, CHF (congestive heart failure) I50.9 [facility] [id number] [place] [address] 11957- 3712 Jun, CHF (congestive heart failure) I50.9 [facility] [id number] [place] [address] 10820- 3001 May, CHF (congestive heart failure) I50.9 [facility] [address] [address] Apr, CHF (congestive heart failure) I50.9 [facility] [id number] [place] [address] 06917- 4748 Dec, CHF (congestive heart failure) I50.9 and Non-ischemic cardiomyopathy I42.9 [facility] [id number] [place] [address] 57264- 2118 Dec, CHF (congestive heart failure) I50.9 and Non-ischemic cardiomyopathy I42.9 [facility] [id number] [place] [address] 63760- 3809 Oct, Non-ischemic cardiomyopathy I42.9 and CHF (congestive heart failure) I50.9 [facility] [id number] [place] [address] 99709- 3776 Oct, [facility] [id number] [place] [address] 21089- 1220 Aug, CHF (congestive heart failure) I50.9 ; Non-ischemic cardiomyopathy I42.9 and Hidradenitis axillaris L73.2 [place] [id number] [place] [address] 45578- 3747 Jul, [facility] [id number] [place] [address] 64668- 7094 May, Nasal congestion R09.81 ; Wheezing R06.2 and Hidradenitis axillaris L73.2 [facility] [id number] [place] [address] 26353- 8475 Mar, [facility] [id number] [place] [address] 26885- 2102 Dec, [facility] [id number] [place] [address] 73873- 5386 Dec, CHF (congestive heart failure) I50.9 and Non-ischemic cardiomyopathy I42.9 [facility] [address] [address]- 0[address] Aug, [facility] [address] [place] [address]- 4[address] Aug, CHF (congestive heart failure) I50.9 and Non-ischemic cardiomyopathy I42.9 [facility] [address] [address]- 1544 Oct, [facility] [id number] [place] [address] 64535- 3559 Oct, [facility] [id number] [place] [address] 12280- 2422 Aug, [facility] [id number] [place] [address] 70808- 5811 Aug, [facility] [id number] [place] [address] 22334- 6671 Aug, [facility] [address] [address]- [address] Aug, IMMUNIZATIONS No Known Immunizations SOCIAL HISTORY [...]
--- OUTSIDE RECORDS SUMMARY | 2018-10-02 12:38 | XMS REPORT ---
Author Author DORA ROMERO [facility] Address [address] [place] [address] Care Team Providers Care Er Tech Name Role Phone DORA ROMERO Unavailable PROBLEMS Type Condition ICD9-CM Code NRH70-AD Code Onset Dates Condition Status SNOMED Code Problem CHF (congestive heart failure) I50.9 Active 20874141 Problem Non-ischemic cardiomyopathy I42.9 Active 51168622 ALLERGIES No Information SOCIAL HISTORY Never Assessed PLAN OF CARE VITAL SIGNS MEDICATIONS Medication Instructions Dosage Frequency Start Date End Date Duration Status Enalapril Maleate 2.5 MG Orally Once a day 1 tablet 24h 30 days Active Furosemide 40 mg Orally Once a day 1 tablet 24h 30 days Active Potassium Chloride Karmen ER 10 MEQ Orally Once a day 1 tablet with food 24h 30 days Active Metoprolol Tartrate 25 MG Orally Twice a day 1 tablet with food 12h 30 days Active RESULTS No Results PROCEDURES No Known procedures IMMUNIZATIONS No Known Immunizations MEDICAL (GENERAL) HISTORY Type Description Date Medical History CHF Medical History type II diabetes Medical History hypertension Surgical History cleft pallet repair Surgical History tonsillectomy Surgical History Surgical History tubal ligation Hospitalization History Hospitalization History childbirth x 3 Hospitalization History CHF
--- OUTSIDE RECORDS SUMMARY | 2018-10-02 12:38 | XMS REPORT ---
Author Author DORA ROMERO [facility] eClinicalWorks Address Unknown Phone Unavailable Care Team Providers Care Knife Sharpener Name Role Phone DORA ROMERO CP Unavailable Allergies No Known Allergies Problems Problem Type Condition Code Onset Dates Condition Status Problem Non-ischemic cardiomyopathy I42.9 Active Problem CHF (congestive heart failure) I50.9 Active Medications Medication Code System Code Instructions Start Date End Date Status Dosage Furosemide [facility] [address]-35 40 MG Orally Once a day 1 tablet Metoprolol Tartrate [facility] [address]-11 25 MG Orally Twice a day 1 tablet with food Potassium Chloride ER [facility] [address]-91 10 MEQ Orally Once a day 1 tablet with food Enalapril Maleate [facility] [address]-58 2.5 MG Orally Once a day 1 tablet Results No Known Results Summary Purpose eClinicalWorks Submission
--- OUTSIDE RECORDS SUMMARY | 2018-10-02 12:38 | XMS REPORT ---
Author Author DORA ROMERO [facility] Address [address] [place] [address] Care Team Providers Care Form Tamper Operator Name Role Phone DORA ROMERO Unavailable PROBLEMS Type Condition ICD9-CM Code ZGR73-OU Code Onset Dates Condition Status SNOMED Code Problem CHF (congestive heart failure) I50.9 Active 08696684 Problem Non-ischemic cardiomyopathy I42.9 Active 65966415 ALLERGIES Unknown Allergies SOCIAL HISTORY No smoking Hx information available PLAN OF CARE VITAL SIGNS MEDICATIONS Medication Instructions Dosage Frequency Start Date End Date Duration Status Enalapril Maleate 2.5 MG Orally Once a day 1 tablet 24h 30 days Active Furosemide 40 mg Orally Once a day 1 tablet 24h 30 days Active Metoprolol Tartrate 25 MG Orally Twice a day 1 tablet with food 12h 30 days Active Potassium Chloride Karmen ER 10 MEQ Orally Once a day 1 tablet with food 24h 30 days Active RESULTS No Results PROCEDURES No Known procedures IMMUNIZATIONS No Known Immunizations
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
--- NOTE | 2018-10-02 13:45 | ED General ---
General Chief Complaint: Oral/Throat Problems Stated Complaint: RIGHT COLLARBONE PAIN Nursing Triage Note: PT PRESENTS TO ED WITH COMPLAINTS OF R SIDE OF NECK/COLAR BONE SWELLING, DIFFICULTY MOVING R ARM ABOVE AND, AND INCREASINGLY DIFFICULTY WITH SWALLOWING X 1 MONTH. PT REPORTS SHE MISSED HER APT WITH HER PRIMARY DOCTOR AND HAS NOT SEEN ANY ONE FOR THESE COMPLAINTS. Nursing Sepsis Screen: No Definite Risk Source of Information: Patient Exam Limitations: No Limitations History of Present Illness Date Seen by Provider: Oct 02, 2018 Time Seen by Provider: 13:30 Initial Comments 53-year-old female patient presents to the emergency department for complaints of swelling and pain to the right clavicle. Denies any known recent injury. Patient has noticed progressively worsening dysphagia over the last 2-4 wks. patient was scheduled to see her primary care provider for the symptoms, but states she missed the appointment. Timing/Duration: Getting Worse, Other (1 month) Modifying Factors: improves with Movement (worse with lifting the RUE above shoulder level.) Allergies and Home Medications Allergies Coded Allergies: No Known Drug Allergies (Unverified , 11/20/11) Home Medications Enalapril Maleate 2.5 Mg Tablet, 2.5 MG PO DAILY, (Reported) Furosemide 40 Mg Tablet, 40 MG PO DAILY, (Reported) Ibuprofen 200 Mg Tablet, 600-800 MG PO TID PRN for PAIN, (Reported) TAKES 3-4 (200MG) TABLETS Metoprolol Tartrate 25 Mg Tablet, 25 MG PO BID, (Reported) Multivitamin 1 Each Capsule, 1 TAB PO DAILY, (Reported) Naproxen Sodium 550 Mg Tablet, 550 MG PO BID Prescribed by: JF HANSON on 10/02/18 154 Potassium Chloride 10 Meq Tab.er.prt, 10 MEQ PO DAILY, (Reported) Prednisone 20 Mg Tab, 40 MG PO DAILY Prescribed by: JF HANSON on 10/02/18 1543 Patient Home Medication List Home Medication List Reviewed: Yes Review of Systems Review of Systems Constitutional: No chills, No diaphoresis, No dizziness, No fever, No malaise EENTM: no symptoms reported Respiratory: No cough, No dyspnea on exertion, No hemoptysis, No phlegm, No short of breath Cardiovascular: No chest pain, No palpitations, No syncope Gastrointestinal: No abdominal pain, No diarrhea; dysphagia; No hematemesis, No jaundice, No loss of appetite, No melena, No nausea, No vomiting Genitourinary: no symptoms reported Musculoskeletal: see HPI; No back pain; joint pain (right sternoclavicular joint), joint swelling (rt sternoclavicular joint.); No neck pain Skin: see HPI, lumps (rt sternoclavicular joint. ) Psychiatric/Neurological: No Symptoms Reported Hematologic/Lymphatic: No Symptoms Reported All Other Systems Reviewed Negative Unless Noted: Yes (Negative excepted noted.) Past Cccyxwx-Hlcged-Tlnqxd Hx Past Med/Social Hx: Reviewed Nursing Past Med/Soc Hx Patient Social History Alcohol Use: Denies Use Recreational Drug Use: No Smoking Status: Current Everyday Smoker Type Used: Cigarettes Recent Foreign Travel: No Contact w/Someone Who Travel: No Recent Infectious Disease Expo: No Physical Abuse: No Sexual Abuse: No Mistreated: No Fear: No Immunizations Up To Date Tetanus Booster (TDap): Less than 5yrs PED Vaccines UTD: Yes Date of Pneumonia Vaccine: Sep 15, 2015 Seasonal Allergies Seasonal Allergies: No Past Medical History Surgeries: Yes (CLEFT PALATE) Section, Pacemaker, Tonsillectomy, Tubal Ligation Respiratory: No Cardiac: Yes (chf) High Cholesterol, Hypertension Neurological: Yes Headaches /Migraines 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 Sexually Transmitted Disease: No Gastrointestinal: No Irritable Bowel Musculoskeletal: No Endocrine: Yes Diabetes, Non-Insulin dep Cancer: No Psychosocial: No Integumentary: No Blood Disorders: No Adverse Reaction/Blood Tranf: No Family Medical History Reviewed Nursing Family Hx Hypertension 19 FATHER 19 MOTHER Myocardial infarction 19 FATHER No Pertinent Family Hx, Heart Disease, CAD Under 55 Years Old, Hypertension Physical Exam Vital Signs Vital Signs - First Documented 10/02/18 13:23 Temp 97.1 Pulse 74 Resp 18 B/P (MAP) 108/75 (86) Pulse Ox 95 Capillary Refill : Less Than 3 Seconds Height, Weight, BMI Height: 5'7.00" Weight: 190lbs. 0.0oz. 86.646068kh; 27.5 BMI Method:Stated General Appearance: No Apparent Distress, WD/WN Eyes: Bilateral Eye Normal Inspection, Bilateral Eye PERRL, Bilateral Eye EOMI HEENT: PERRL/EOMI, TMs Normal, Normal ENT Inspection, Pharynx Normal Neck: Full Range of Motion, Normal Inspection, Supple, Other (slight tenderness over the lower anterior neck without lymphadenopathy noted. (+) right supraclavicular swelling and tenderness noted. ) Respiratory: Lungs Clear, Normal Breath Sounds, No Accessory Muscle Use, No Respiratory Distress, Other (right sternoclavicular swelling and tenderness without erythema or warmth.) Cardiovascular: Regular Rate, Rhythm, No Edema, No Gallop, No JVD, No Murmur, Normal Peripheral Pulses Gastrointestinal: Normal Bowel Sounds, No Organomegaly, Non Tender, Soft Extremity: Normal Capillary Refill, No Calf Tenderness, No Pedal Edema Neurologic/Psychiatric: Alert, Oriented x3, Normal Mood/Affect Skin: Normal Color, Warm/Dry Progress/Results/Core Measures Suspected Sepsis Recent Fever Within 48 Hours: No Infection Criteria Present: None New/Unexplained Altered Menta: No Sepsis Screen: No Definite Risk SIRS Temperature:97.1 Pulse: 74 Respiratory Rate: 18 Laboratory Tests 10/02/18 13:37: White Blood Count 9.0 Blood Pressure 108 /75 Mean: 86 Laboratory Tests 10/02/18 13:37: Creatinine 0.99, Platelet Count 250, Total Bilirubin 0.4 Results/Orders Lab Results Laboratory Tests Test 10/02/18 13:37 Range/Units White Blood Count 9.0 4.3-11.0 10^3/uL Red Blood Count 5.07 4.35-5.85 10^6/uL Hemoglobin 15.1 11.5-16.0 G/DL Hematocrit 45 35-52 % Mean Corpuscular Volume 89 80-99 FL Mean Corpuscular Hemoglobin 30 25-34 PG Mean Corpuscular Hemoglobin Concent 33 32-36 G/DL Red Cell Distribution Width 14.8 H 10.0-14.5 % Platelet Count 250 130-400 10^3/uL Mean Platelet Volume 11.1 H 7.4-10.4 FL Neutrophils (%) (Auto) 57 42-75 % Lymphocytes (%) (Auto) 29 12-44 % Monocytes (%) (Auto) 9 0-12 % Eosinophils (%) (Auto) 5 0-10 % Basophils (%) (Auto) 1 0-10 % Neutrophils # (Auto) 5.1 1.8-7.8 X 10^3 Lymphocytes # (Auto) 2.6 1.0-4.0 X 10^3 Monocytes # (Auto) 0.8 0.0-1.0 X 10^3 Eosinophils # (Auto) 0.4 H 0.0-0.3 10^3/uL Basophils # (Auto) 0.1 0.0-0.1 10^3/uL Sodium Level 138 135-145 MMOL/L Potassium Level 3.9 3.6-5.0 MMOL/L Chloride Level 100 98-107 MMOL/L Carbon Dioxide Level 24 21-32 MMOL/L Anion Gap 14 5-14 MMOL/L Blood Urea Nitrogen 23 H 7-18 MG/DL Creatinine 0.99 0.60-1.30 MG/DL Estimat Glomerular Filtration Rate 59 BUN/Creatinine Ratio 23 Glucose Level 155 H 70-105 MG/DL Calcium Level 10.0 8.5-10.1 MG/DL Corrected Calcium 9.6 8.5-10.1 MG/DL Total Bilirubin 0.4 0.1-1.0 MG/DL Aspartate Amino Transf (AST/SGOT) 16 5-34 U/L Alanine Aminotransferase (ALT/SGPT) 17 0-55 U/L Alkaline Phosphatase 87 40-136 U/L Total Protein 7.8 6.4-8.2 GM/DL Albumin 4.5 3.2-4.5 GM/DL TSH Simms Testing 1.51 0.35-4.94 UIU/ML My Orders Orders - JF HANSON Saline Lock/Iv-Start (10/02/18 13:24) Cbc With Automated Diff (10/02/18 13:24) Comprehensive Metabolic Panel (10/02/18 13:24) Thyroid Analyzer (10/02/18 13:24) Ct Neck/Chest W (10/02/18 13:24) Vital Signs/I&O 10/02/18 10/02/18 13:23 15:49 Temp 97.1 Pulse 74 85 Resp 18 18 B/P (MAP) 108/75 (86) 120/68 (85) Pulse Ox 95 98 Capillary Refill : Less Than 3 Seconds Blood Pressure Mean: 86 Diagnostic Imaging Diagonstic Imaging: CT Plain Films/CT/US/NM/MRI: chest, other (soft tissue neck) Comments Inflammatory changes to the right sternoclavicular joint with inflammatory changes. No lymphadenopathy noted. No thyroid mass or lung masses noted. Reviewed: Discussed w/Radiologist (discussed with Dr. Santana) Departure Communication (Admissions) Patient seen and evaluated. CBC, CMP, thyroid analyzer, and CT neck/chest obtained. All findings discussed with the patient. Plan for discharge to home with oral prednisone and Naprosyn. Patient to follow-up with her primary care provider for recheck as an outpatient. She is to call for appointment time. She'll return immediately to the emergency department for worsened symptoms or any other concerns. 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 Decision time for Depature: 15:42 Referrals: DORA ROMERO MD (PCP/Family) Primary Care Physician Patient Instructions: Shoulder Pain (DC) Add. Discharge Instructions: All discharge instructions reviewed with patient and/or family. Voiced understanding. Medications as instructed. Tylenol extra strength over-the- counter as directed for pain as needed. You may use an ice pack or heating pad as needed for pain. Follow-up with Dr. Romero for recheck as an outpatient. Call tomorrow morning for appointment time. Avoid lifting, pushing, pulling for 5-7 days, then increase activity as tolerated. Return in the emergency department for worsened symptoms or any other concerns. Scripts Naproxen Sodium (Anaprox Ds) 550 Mg Tablet 550 MG PO BID, #20 TAB 0 Refills Prov: JF HANSON 10/02/18 Prednisone (Prednisone) 20 Mg Tab 40 MG PO DAILY, #10 TAB 0 Refills Prov: JF HANSON 10/02/18 Copy Copies To 1: DORA ROMERO MD, GRETCHEN L PA Oct 02, 2018 13:45
[2018-10-02 13:47] LABS: BASOPHILS # (AUTO) 0.1 10^3/uL (0.0-0.1); BASOPHILS % (AUTO) 1 % (0-10); EOSINOPHILS # (AUTO) 0.4 10^3/uL (0.0-0.3); EOSINOPHILS % (AUTO) 5 % (0-10); HEMATOCRIT 45 % (35-52); HEMOGLOBIN 15.1 G/DL (11.5-16.0); LYMPHOCYTES # (AUTO) 2.6 X 10^3 (1.0-4.0); LYMPHOCYTES % (AUTO) 29 % (12-44); MEAN CORPUSCULAR HEMOGLOBIN 30 PG (25-34); MEAN CORPUSCULAR HGB CONC 33 G/DL (32-36); MEAN CORPUSCULAR VOLUME 89 FL (80-99); MEAN PLATELET VOLUME 11.1 FL (7.4-10.4); MONOCYTES # (AUTO) 0.8 X 10^3 (0.0-1.0); MONOCYTES % (AUTO) 9 % (0-12); NEUTROPHILS # (AUTO) 5.1 X 10^3 (1.8-7.8); NEUTROPHILS % (AUTO) 57 % (42-75); PLATELET COUNT 250 10^3/uL (130-400); RED CELL DISTRIBUTION WIDTH 14.8 % (10.0-14.5)
[2018-10-02 14:04] LABS: ALBUMIN 4.5 GM/DL (3.2-4.5); BILIRUBIN,TOTAL 0.4 MG/DL (0.1-1.0); CREATININE SERUM 0.99 MG/DL (0.60-1.30); POTASSIUM 3.9 MMOL/L (3.6-5.0); TOTAL PROTEIN 7.8 GM/DL (6.4-8.2)
[2018-10-02 14:23] LABS: TSH (THYROID ANALYZER) 1.51 UIU/ML (0.35-4.94)
[2018-10-02] MEDS ORDERED: PRD20T PO (15:43)
[2018-10-02] MEDS ORDERED: NAPR-1070 PO (15:43)
[2018-10-02 15:49] VITALS: BP 120/68
--- NOTE | 2018-10-02 16:05 | Diagnostic Imaging Report ---
INDICATION: Difficulty swallowing and trouble breathing. Axial imaging through the neck and chest was performed after the administration of intravenous contrast. Sagittal and coronal reformations were also performed. Correlation is made with prior CT angiogram of the chest from 07/23/2015. CT NECK: The visualized intracranial structures are unremarkable. Posterior nasopharynx and oropharynx are unremarkable. The parapharyngeal fat planes are preserved. The epiglottis and larynx are unremarkable. No thyroid mass is detected. The submandibular and parotid glands are symmetric bilaterally. No jugulodigastric or posterior cervical lymphadenopathy is detected. There does appear to be some mild soft tissue swelling around the right sternoclavicular joint. No bony destructive changes are seen. No fracture is identified. No fluid collection is identified. There is moderate artifact from the patient's left chest wall cardiac pacemaker. IMPRESSION: Unremarkable CT of the neck apart from mild swelling around the right sternoclavicular joint without evidence of fracture or bony destructive changes. CT CHEST: No axillary, hilar or mediastinal lymphadenopathy is seen. No pericardial or pleural fluid is identified. No pulmonary infiltrate, nodule or mass is seen. Upper abdomen is unremarkable. IMPRESSION: Unremarkable CT of the chest. Dictated by: Dictated on workstation # [id number]
== END 2018-10-02 15:49 | disposition home or self-care (01) ==
LOC: EDUNIT# 12:30 → ER 12:32
DX: M19.011 Primary osteoarthritis, right shoulder (principal); I11.0 Hypertensive heart disease with heart failure; I50.9 Heart failure, unspecified; K58.9 Irritable bowel syndrome, unspecified; E11.9 Type 2 diabetes mellitus without complications; E78.00 Pure hypercholesterolemia, unspecified; F17.210 Nicotine dependence, cigarettes, uncomplicated; Z79.52 Long term (current) use of systemic steroids; Z90.89 Acquired absence of other organs; Z98.51 Tubal ligation status; Z82.49 Family history of ischemic heart disease and other diseases of the circulatory system; Z98.890 Other specified postprocedural states
CPT/HCPCS: 36415; 70491; 71260; 80053; 84443; 85025

== ENCOUNTER 2019-06-01 16:24 | Emergency (ER) | payer SELFPAY ==
[~2019-06-01] VITALS: Ht 172 cm; Wt 84.0 kg
[~2019-06-01 16:24] MED LIST changes: +NAPR-1070 PO
--- NOTE | 2019-06-01 17:05 | ED Cough/URI ---
General Chief Complaint: Respiratory Problems Stated Complaint: SOA Nursing Triage Note: pt presents to ED with c/o SOA at rest that worsens with exertion. pt has hx of CHF. pt states she "always has some SOA but this time it's worse." pt also states she was recently sick with a cough and runny nose. Sepsis Screen: No Definite Risk Source: patient, other Exam Limitations: no limitations History of Present Illness Date Seen by Provider: Jun 01, 2019 Time Seen by Provider: 16:51 Initial Comments Patient presents to ER by private conveyance with chief complaint of one week progressively worsening shortness of breath wheezing and nonproductive cough. No fevers or chills. She is afraid she might have a pneumonia. She does not have COPD or asthma but she does have a left over albuterol inhaler from bronchitis and she took it this morning and he'll feel she is wheezy and short of breath. She smokes about a quarter to half pack cigarettes per day. No sick contacts. She has a history of heart failure and takes Lasix. Known to Dr. Santiago and [facility]. Allergies and Home Medications Allergies Coded Allergies: No Known Drug Allergies (Unverified , 11/20/11) Home Medications Enalapril Maleate 2.5 Mg Tablet, 2.5 MG PO DAILY, (Reported) Furosemide 40 Mg Tablet, 40 MG PO DAILY, (Reported) Ibuprofen 200 Mg Tablet, 600-800 MG PO TID PRN for PAIN, (Reported) TAKES 3-4 (200MG) TABLETS Metoprolol Tartrate 25 Mg Tablet, 25 MG PO BID, (Reported) Multivitamin 1 Each Capsule, 1 TAB PO DAILY, (Reported) Naproxen Sodium 550 Mg Tablet, 550 MG PO BID Prescribed by: JF HANSON on 10/02/18 9262 Potassium Chloride 10 Meq Tab.er.prt, 10 MEQ PO DAILY, (Reported) Prednisone 20 Mg Tab, 40 MG PO DAILY Prescribed by: JF HANSON on 10/02/18 2099 Patient Home Medication List Home Medication List Reviewed: Yes Review of Systems Review of Systems Constitutional: No chills, No diaphoresis EENTM: No hearing loss, No ear pain Respiratory: cough, short of breath, wheezing Cardiovascular: No chest pain, No edema Gastrointestinal: No abdominal pain, No constipation, No diarrhea : No Musculoskeletal: No back pain, No joint pain All Other Systems Reviewed Negative Unless Noted: Yes Past Cisfcby-Idypeg-Cxstnh Hx Patient Social History Alcohol Use: Denies Use Recreational Drug Use: No Type Used: Cigarettes Recent Foreign Travel: No Contact w/Someone Who Travel: No Recent Infectious Disease Expo: No Immunizations Up To Date Tetanus Booster (TDap): Less than 5yrs PED Vaccines UTD: Yes Date of Pneumonia Vaccine: Sep 15, 2015 Seasonal Allergies Seasonal Allergies: No Past Medical History Surgeries: Yes (CLEFT PALATE) Section, Pacemaker, Tonsillectomy, Tubal Ligation Respiratory: No Cardiac: Yes (chf) High Cholesterol, Hypertension Neurological: Yes Headaches /Migraines 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 0.0oz. 86.702491ce; 28.00 BMI Method:Stated General Appearance: WD/WN, no apparent distress Eyes: Bilateral Eye Normal Inspection, Bilateral Eye PERRL, Bilateral Eye EOMI HEENT: PERRL/EOMI, normal ENT inspection Neck: full range of motion, normal inspection Respiratory: no respiratory distress, no accessory muscle use; No respiratory distress; wheezing Cardiovascular: normal peripheral pulses, regular rate, rhythm Gastrointestinal: normal bowel sounds, non tender, soft Neurologic/Psychiatric: alert, normal mood/affect, oriented x 3 Skin: normal color, warm/dry Progress/Results/Core Measures Suspected Sepsis Recent Fever Within 48 Hours: No Infection Criteria Present: None New/Unexplained Altered Menta: No Sepsis Screen: No Definite Risk SIRS Temperature: Pulse: 90 Respiratory Rate: 22 Laboratory Tests 06/01/19 17:05: White Blood Count 11.3H Blood Pressure 139 /76 Mean: 97 Laboratory Tests 06/01/19 17:05: Creatinine 1.09, Platelet Count 200, Total Bilirubin 0.7 Results/Orders Lab Results Laboratory Tests Test 06/01/19 17:05 Range/Units White Blood Count 11.3 H 4.3-11.0 10^3/uL Red Blood Count 4.10 L 4.35-5.85 10^6/uL Hemoglobin 12.0 11.5-16.0 G/DL Hematocrit 36 35-52 % Mean Corpuscular Volume 88 80-99 FL Mean Corpuscular Hemoglobin 29 25-34 PG Mean Corpuscular Hemoglobin Concent 33 32-36 G/DL Red Cell Distribution Width 14.9 H 10.0-14.5 % Platelet Count 200 130-400 10^3/uL Mean Platelet Volume 11.2 H 7.4-10.4 FL Neutrophils (%) (Auto) 65 42-75 % Lymphocytes (%) (Auto) 24 12-44 % Monocytes (%) (Auto) 8 0-12 % Eosinophils (%) (Auto) 3 0-10 % Basophils (%) (Auto) 1 0-10 % Neutrophils # (Auto) 7.4 1.8-7.8 X 10^3 Lymphocytes # (Auto) 2.7 1.0-4.0 X 10^3 Monocytes # (Auto) 0.9 0.0-1.0 X 10^3 Eosinophils # (Auto) 0.3 0.0-0.3 10^3/uL Basophils # (Auto) 0.1 0.0-0.1 10^3/uL Sodium Level 141 135-145 MMOL/L Potassium Level 3.4 L 3.6-5.0 MMOL/L Chloride Level 105 98-107 MMOL/L Carbon Dioxide Level 25 21-32 MMOL/L Anion Gap 11 5-14 MMOL/L Blood Urea Nitrogen 17 7-18 MG/DL Creatinine 1.09 0.60-1.30 MG/DL Estimat Glomerular Filtration Rate 52 BUN/Creatinine Ratio 16 Glucose Level 135 H 70-105 MG/DL Calcium Level 9.3 8.5-10.1 MG/DL Corrected Calcium 9.3 8.5-10.1 MG/DL Total Bilirubin 0.7 0.1-1.0 MG/DL Aspartate Amino Transf (AST/SGOT) 54 H 5-34 U/L Alanine Aminotransferase (ALT/SGPT) 78 H 0-55 U/L Alkaline Phosphatase 144 H 40-136 U/L C-Reactive Protein High Sensitivity 3.81 H 0.00-0.50 MG/DL B-Type Natriuretic Peptide 2577.9 H <100.0 PG/ML Total Protein 7.1 6.4-8.2 GM/DL Albumin 4.0 3.2-4.5 GM/DL My Orders Orders - JESUS WILLSON Chest Pa/Lat (2 View) (06/01/19 17:01) Cbc With Automated Diff (06/01/19 17:01) Comprehensive Metabolic Panel (06/01/19 17:01) Hs C Reactive Protein (06/01/19 17:01) Albuterol/Ipra Inhalation Soln (Duoneb I (06/01/19 17:15) Svn Small Volume Nebulizer (06/01/19 17:01) BNP (06/01/19 17:05) Furosemide Injection (Lasix Injection) (06/01/19 18:00) Medications Given in ED Current Medications Medications Dose Ordered Sig/Jose Route Start Time Stop Time Status Last Admin Dose Admin Albuterol/ Ipratropium 3 ml ONCE ONCE INH 06/01/19 17:15 06/01/19 17:16 DC 06/01/19 17:17 3 ML Vital Signs/I&O 06/01/19 16:43 Pulse 90 Resp 22 B/P (MAP) 139/76 (97) Pulse Ox 99 O2 Delivery Room Air Capillary Refill : Less Than 3 Seconds Blood Pressure Mean: 97 POS Progress Note : Time: 17:54 Progress Note Patient states her breathing is improved of the breathing treatment. BNP is elevated beyond her baseline of 400. Plan to give her 60 of Lasix now and send her home on some increased Lasix and potassium. She doesn't have any congestion on chest x-ray, JVD or edema. Diagnostic Imaging Diagonstic Imaging: Xray Plain Films/CT/US/NM/MRI: chest (2v) Comments No acute cardiopulmonary processes. No infiltrates or congestion. Reviewed: Reviewed by Me Departure Impression Primary Impression: Acute bronchitis Qualified Codes: J20.9 - Acute bronchitis, unspecified Additional Impression: CHF (congestive heart failure) Qualified Codes: I50.9 - Heart failure, unspecified Disposition: 01 HOME, SELF-CARE Condition: Stable Departure-Patient Inst. Decision time for Depature: 17:58 Referrals: DORA ROMERO MD (PCP/Family) Primary Care Physician Patient Instructions: Acute Bronchitis, Heart Failure, Adult (DC) Add. Discharge Instructions: Take the Lasix 40 mg daily for the next days. Take the potassium supplement 20 mEq once a day for the next 5 days. Take the breathing treatments one every 4 hours by nebulizer as necessary for shortness of breath, wheezing or coughing fits. If your symptoms get worse or go on for more than 10-14 days you should follow- up in the ER or with Dr. Tenorio. Next week would be souza to have a recheck by your primary care doctor. All discharge instructions reviewed with patient and/or family. Voiced understanding. Scripts Furosemide (Lasix) 40 Mg Tablet 40 MG PO DAILY for 5 Days, #5 TAB 0 Refills Prov: JESUS WILLSON 06/01/19 Potassium Chloride (Potassium Chloride) 20 Meq Tablet.er 20 MEQ PO DAILY for 5 Days, #5 TAB 0 Refills Prov: JESUS WILLSON 06/01/19 Albuterol Sulfate (Albuterol Sulfate) 2.5 Mg/3 Ml Vial.neb 2.5 MG INH Q4H PRN for WHEEZING, #50 EA 0 Refills Prov: JESUS WILLSON 06/01/19 JESUS WILLSON Jun 01, 2019 17:05 POS
[2019-06-01 17:12] LABS: BASOPHILS # (AUTO) 0.1 10^3/uL (0.0-0.1); BASOPHILS % (AUTO) 1 % (0-10); EOSINOPHILS # (AUTO) 0.3 10^3/uL (0.0-0.3); EOSINOPHILS % (AUTO) 3 % (0-10); HEMATOCRIT 36 % (35-52); LYMPHOCYTES # (AUTO) 2.7 X 10^3 (1.0-4.0); LYMPHOCYTES % (AUTO) 24 % (12-44); MEAN CORPUSCULAR HEMOGLOBIN 29 PG (25-34); MEAN CORPUSCULAR HGB CONC 33 G/DL (32-36); MEAN CORPUSCULAR VOLUME 88 FL (80-99); MEAN PLATELET VOLUME 11.2 FL (7.4-10.4); MONOCYTES # (AUTO) 0.9 X 10^3 (0.0-1.0); MONOCYTES % (AUTO) 8 % (0-12); NEUTROPHILS # (AUTO) 7.4 X 10^3 (1.8-7.8); NEUTROPHILS % (AUTO) 65 % (42-75); PLATELET COUNT 200 10^3/uL (130-400); RED CELL DISTRIBUTION WIDTH 14.9 % (10.0-14.5); WHITE BLOOD COUNT 11.3 10^3/uL (4.3-11.0)
[2019-06-01] MEDS ORDERED: RT-ALBUTEROL/IPRATROPIUM 3 ML (DUONEB) VIAL INH ONE (17:15)
[2019-06-01 17:38] LABS: BILIRUBIN,TOTAL 0.7 MG/DL (0.1-1.0); CALCIUM 9.3 MG/DL (8.5-10.1); CREATININE SERUM 1.09 MG/DL (0.60-1.30); POTASSIUM 3.4 MMOL/L (3.6-5.0); TOTAL PROTEIN 7.1 GM/DL (6.4-8.2)
[2019-06-01] MEDS ORDERED: FUROSEMIDE 40 MG/4 ML INJ (LASIX) IVP ONE (18:00)
[2019-06-01] MEDS ORDERED: FURO-124 PO (18:06)
[2019-06-01] MEDS ORDERED: POTA-51 PO (18:06)
[2019-06-01] MEDS ORDERED: ALBU2.5V4 INH (18:06)
--- NOTE | 2019-06-01 18:21 | Diagnostic Imaging Report ---
INDICATION: Shortness of breath. PA and lateral chest. Patient has a unipolar pacemaker with ICD. Heart size and pulmonary vascularity are normal. Lungs are clear. There are no effusions or pneumothoraces. IMPRESSION: Negative chest. Dictated by: Dictated on workstation # [id number]
--- NOTE | 2019-06-01 18:40 | NUR ---
pt refused the 60mg IV Lasix prior to discharge. this RN explained the importance of the IV Lasix and the risks of refusing it. the pt understood the risk and benefits and still refused the medication.
[2019-06-01 18:43] VITALS: BP 137/94
--- OUTSIDE RECORDS SUMMARY | 2019-06-27 00:36 | XMS REPORT ---
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 Name Role Phone LISA Toro Unavailable PROBLEMS Type Condition ICD9-CM Code [id number] Code Onset Dates Condition S tatus SNOMED Code Problem Non-ischemic cardiomyopathy I42.9 Ac tive 32966109 Problem CHF (congestive heart failure) I50.9 Active [id number] ALLERGIES No Information ENCOUNTERS Encounter Location Date Diagnosis [facility] [address] [id number] [address] [place] [phone] Dec, [facility] [address] [id number] [address] [place] [phone] October, Injury of left hand, initial encounter S69.92XA and Encounter for immunization Z23 [facility] [address] [id number] [address] [place] [phone] Aug, CHF (congestive heart failur e) I50.9 [facility] [address] [id number] [address] [place] [phone] Jul, CHF (congestive heart failur e) I50.9 [facility] [address] [facility] [id number] [address] [place] [phone] Jun, [facility] [address] [facility] [id number] [address] [place] [phone] Apr, CHF (congestive heart failur e) I50.9 [facility] [address] [facility] [id number] [address] [place] [phone] Mar, [facility] [address] [id number] [address] [place] [phone] Dec, CHF (congestive heart failur e) I50.9 [facility] [address] [id number] [address] [place] [phone] Oct, [facility] [address] [facility] [id number] [address] [place] [phone] Aug, CHF (congestive heart failur e) I50.9 [facility] [address] [facility] [id number] [address] [place] [phone] Aug, Dysuria R30.0 and Acute cyst itis without hematuria N30.00 [facility] [address] [id number] [address] [place] [phone] Aug, CHF (congestive heart failur e) I50.9 [facility] [address] [facility] [id number] [address] [place] [phone] Jul, CHF (congestive heart failur e) I50.9 [facility] [address] [facility] [id number] [address] [place] [phone] Jun, CHF (congestive heart failur e) I50.9 [facility] [address] [facility] [id number] [address] [place] [phone] Jun, CHF (congestive heart failur e) I50.9 [facility] [address] [facility] [id number] [address] [place] [phone] May, CHF (congestive heart failur e) I50.9 [facility] [address] [facility] [id number] [address] [place] [phone] Apr, CHF (congestive heart failur e) I50.9 [facility] [address] [facility] [id number] [address] [place] [phone] 08 Dec, 2016 CHF (congestive heart failur e) I50.9 and Non-ischemic cardiomyopathy I42.9 [facility] [address] [facility] [id number] [address] [place] [phone] Dec, CHF (congestive heart failur e) I50.9 and Non-ischemic cardiomyopathy I42.9 [facility] [address] [id number] [address] [place] [phone] Oct, Non-ischemic cardiomyopathy I42.9 and CHF (congestive heart failure) I50.9 [facility] [address] [facility] [id number] [address] [place] [phone] Oct, [facility] [address] [facility] [id number] [address] [place] [phone] Aug, CHF (congestive heart failur e) I50.9 ; Non-ischemic cardiomyopathy I42.9 and Hidradenitis axillaris L73.2 [facility] [address] [facility] [id number] [address] [place] [phone] Jul, [facility] [address] [id number] [address] [place] [phone] May, Nasal congestion R09.81 ; Wh eezing R06.2 and Hidradenitis axillaris L73.2 [facility] [address] [facility] [id number] [address] [place] [phone] Mar, [facility] [address] [facility] [id number] [address] [place] [phone] Dec, [facility] [address] [id number] [address] [place] [phone] Dec, CHF (congestive heart failur e) I50.9 and Non-ischemic cardiomyopathy I42.9 [facility] [address] [facility] [id number] [address] [place] [phone] Aug, [facility] [address] [facility] [id number] [address] [place] [phone] Aug, CHF (congestive heart failur e) I50.9 and Non-ischemic cardiomyopathy I42.9 [facility] [address] [facility] [id number] [address] [place] [phone] Oct, [facility] [address] [facility] [id number] [address] [place] [phone] Oct, [facility] [address] [facility] [id number] [address] [place] [phone] Aug, [facility] [address] [facility] [id number] [address] [place] [phone] Aug, [facility] [address] [facility] [id number] [address] [place] [phone] Aug, [facility] [address] [facility] [id number] [address] [place] [phone] Aug, IMMUNIZATIONS No Known Immunizations SOCIAL HISTORY Never Assessed REASON FOR VISIT PLAN OF CARE VITAL SIGNS Height 67 in 2014-09-02 Weight 222.8 lbs 2014-09-02 Temperature 99 degrees Fahrenheit 2014-09-02 Heart Rate 84 bpm 2014-09-02 Respiratory Rate 20 2014-09-02 Blood pressure systolic 126 mmHg 2014-09-02 Blood pressure diastolic 78 mmHg 2014-09-02 MEDICATIONS Unknown Medications RESULTS No Results PROCEDURES [...]
--- OUTSIDE RECORDS SUMMARY | 2019-06-27 00:36 | XMS REPORT ---
Author Author John Toro Organization 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 [address] [id number] [address] [place] [phone] Dec, [facility] [address] [id number] [address] [place] [phone] October, Injury of left hand, initial encounter S69.92XA and Encounter for immunization Z23 [facility] [address] [id number] [address] [place] [phone] Aug, CHF (congestive heart failur e) I50.9 [facility] [id number] [address] [place] [phone] Jul, CHF (congestive heart failur e) I50.9 [facility] [address] [facility] [id number] [address] [place] [phone] Jun, [facility] [address] [facility] [id number] [address] [place] [phone] Apr, CHF (congestive heart failur e) I50.9 [facility] [address] [facility] [id number] [address] [place] [phone] Mar, [facility] [id number] [address] [place] [phone] Dec, CHF (congestive heart failur e) I50.9 [facility] [address] [id number] [address] [place] [phone] Oct, [facility] [address] [facility] [id number] [address] [place] [phone] Aug, CHF (congestive heart failur e) I50.9 [facility] [address] [facility] [id number] [address] [place] [phone] Aug, Dysuria R30.0 and Acute cyst itis without hematuria N30.00 [facility] [address] [id number] [address] [place] [phone] Aug, CHF (congestive heart failur e) I50.9 [facility] [address] [facility] [id number] [address] [place] [phone] Jul, CHF (congestive heart failur e) I50.9 [facility] [address] [facility] [id number] [address] [place] [phone] Jun, CHF (congestive heart failur e) I50.9 [facility] [address] [facility] [id number] [address] [place] [phone] Jun, CHF (congestive heart failur e) I50.9 [facility] [address] [facility] [id number] [address] [place] [phone] May, CHF (congestive heart failur e) I50.9 [facility] [address] [facility] [id number] [address] [place] [phone] Apr, CHF (congestive heart failur e) I50.9 [facility] [address] [facility] [id number] [address] [place] [phone] 08 Dec, 2016 CHF (congestive heart failur e) I50.9 and Non-ischemic cardiomyopathy I42.9 [facility] [address] [facility] [id number] [address] [place] [phone] Dec, CHF (congestive heart failur e) I50.9 and Non-ischemic cardiomyopathy I42.9 [facility] [address] [id number] [address] [place] [phone] Oct, Non-ischemic cardiomyopathy I42.9 and CHF (congestive heart failure) I50.9 [facility] [address] [facility] [id number] [address] [place] [phone] Oct, [facility] [address] [facility] [id number] [address] [place] [phone] Aug, CHF (congestive heart failur e) I50.9 ; Non-ischemic cardiomyopathy I42.9 and Hidradenitis axillaris L73.2 [facility] [address] [facility] [id number] [address] [place] [phone] Jul, [facility] [address] [id number] [address] [place] [phone] May, Nasal congestion R09.81 ; Wh eezing R06.2 and Hidradenitis axillaris L73.2 [facility] [address] [facility] [id number] [address] [place] [phone] Mar, [facility] [address] [facility] [id number] [address] [place] [phone] Dec, [facility] [address] [id number] [address] [place] [phone] Dec, CHF (congestive heart failur e) I50.9 and Non-ischemic cardiomyopathy I42.9 [facility] [address] [facility] [id number] [address] [place] [phone] Aug, [facility] [address] [facility] [id number] [address] [place] [phone] Aug, CHF (congestive heart failur e) I50.9 and Non-ischemic cardiomyopathy I42.9 [facility] [address] [facility] [id number] [address] [place] [phone] Oct, [facility] [address] [facility] [id number] [address] [place] [phone] Oct, [facility] [address] [facility] [id number] [address] [place] [phone] Aug, [facility] [address] [facility] [id number] [address] [place] [phone] Aug, [facility] [address] [facility] [id number] [address] [place] [phone] Aug, [facility] [address] [facility] [id number] [address] [place] [phone] Aug, IMMUNIZATIONS No Known Immunizations SOCIAL HISTORY Never Assessed REASON FOR VISIT PLAN OF CARE VITAL SIGNS MEDICATIONS Unknown [...]
--- OUTSIDE RECORDS SUMMARY | 2019-06-27 00:37 | XMS REPORT ---
Author Author John Cristina Doctor Organization [facility] Address Unknown Phone Unavailable Care Team Providers Care Wheelchair Driver Name Role Phone Migration, Doctor Unavailable Unavailable PROBLEMS Type Condition ICD9-CM Code [id number] Code Onset Dates Condition S tatus SNOMED Code Problem Non-ischemic cardiomyopathy I42.9 Ac tive [id number] Problem CHF (congestive heart failure) I50.9 Active [id number] ALLERGIES No Information ENCOUNTERS Encounter Location Date Diagnosis [facility] [address] [id number] [address] [place] [phone] October, [facility] [address] [facility] [id number] [address] [place] [phone] Aug, CHF (congestive heart failur e) I50.9 [facility] [address] [id number] [address] [place] [phone] Jul, CHF (congestive heart failur e) I50.9 [facility] [address] [facility] [id number] [address] [place] [phone] Jun, [facility] [address] [facility] [id number] [address] [place] [phone] Apr, CHF (congestive heart failur e) I50.9 [facility] [address] [facility] [id number] [address] [place] [phone] Mar, [facility] [address] [facility] [id number] [address] [place] [phone] Dec, CHF (congestive heart failur e) I50.9 [facility] [address] [facility] [id number] [address] [place] [phone] Oct, [facility] [address] [facility] [id number] [address] [place] [phone] Aug, CHF (congestive heart failur e) I50.9 [facility] [address] [id number] [address] [place] [phone] Aug, Dysuria R30.0 and Acute cyst itis without hematuria N30.00 [facility] [address] [id number] [address] [place] [phone] 15 Aug, 2017 CHF (congestive heart failur e) I50.9 [facility] [address] [id number] [address] [place] [phone] Jul, CHF (congestive heart failur e) I50.9 [facility] [address] [id number] [address] [place] [phone] Jun, CHF (congestive heart failur e) I50.9 [facility] [address] [facility] [id number] [address] [place] [phone] Jun, CHF (congestive heart failur e) I50.9 [facility] [address] [id number] [address] [place] [phone] May, CHF (congestive heart failur e) I50.9 [facility] [address] [id number] [address] [place] [phone] Apr, CHF (congestive heart failur e) I50.9 [facility] [address] [id number] [address] [place] [phone] Dec, CHF (congestive heart failur e) I50.9 and Non-ischemic cardiomyopathy I42.9 [facility] [address] [id number] [address] [place] [phone] Dec, CHF (congestive heart failur e) I50.9 and Non-ischemic cardiomyopathy I42.9 [facility] [address] [id number] [address] [place] [phone] Oct, Non-ischemic cardiomyopathy I42.9 and CHF (congestive heart failure) I50.9 [facility] [address] [id number] [address] [place] [phone] Oct, [facility] [address] [id number] [address] [place] [phone] Aug, CHF (congestive heart failur e) I50.9 ; Non-ischemic cardiomyopathy I42.9 and Hidradenitis axillaris L73.2 [facility] [address] [id number] [address] [place] [phone] Jul, [facility] [address] [facility] [id number] [address] [place] [phone] May, Nasal congestion R09.81 ; Wh eezing R06.2 and Hidradenitis axillaris L73.2 [facility] [address] [id number] [address] [place] [phone] Mar, [facility] [address] [facility] [id number] [address] [place] [phone] Dec, [facility] [address] [facility] [id number] [address] [place] [phone] Dec, CHF (congestive heart failur e) I50.9 and Non-ischemic cardiomyopathy I42.9 [facility] [address] [facility] [id number] [address] [place] [phone] Aug, [facility] [address] [facility] [id number] [address] [place] [phone] Aug, CHF (congestive heart failur e) I50.9 and Non-ischemic cardiomyopathy I42.9 [facility] [address] [id number] [address] [place] [phone] Oct, [facility] [address] [facility] [id number] [address] [place] [phone] Oct, [facility] [address] [facility] [id number] [address] [place] [phone] Aug, [facility] [address] [facility] [id number] [address] [place] [phone] Aug, [facility] [address] [facility] [id number] [address] [place] [phone] Aug, [facility] [address] [facility] [id number] [address] [place] [phone] Aug, IMMUNIZATIONS No Known Immunizations SOCIAL HISTORY Never Assessed [place] [place] VITAL SIGNS MEDICATIONS Unknown [...]
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
== END 2019-06-01 18:43 | disposition home or self-care (01) ==
LOC: EDUNIT# 16:24 → ER 16:25
DX: J20.9 Acute bronchitis, unspecified (principal); I11.0 Hypertensive heart disease with heart failure; I50.9 Heart failure, unspecified; E11.9 Type 2 diabetes mellitus without complications; E78.00 Pure hypercholesterolemia, unspecified; G43.909 Migraine, unspecified, not intractable, without status migrainosus; K58.9 Irritable bowel syndrome, unspecified; F17.210 Nicotine dependence, cigarettes, uncomplicated; Z79.52 Long term (current) use of systemic steroids; Z98.51 Tubal ligation status; Z90.89 Acquired absence of other organs; Z95.0 Presence of cardiac pacemaker; Z82.49 Family history of ischemic heart disease and other diseases of the circulatory system
CPT/HCPCS: 36415; 71046; 80053; 83880; 85025; 86141; 93005

== ENCOUNTER → 2019-07-30 | Outpatient (CLI) | payer OTHER ==
[~2019-07-30] MED LIST changes: +ALBU2.5V4 INH; +FURO-124 PO; +POTA-51 PO
--- NOTE | 2019-07-30 15:56 | Diagnostic Imaging Report ---
EXAMINATION: PA and lateral chest at 3:35 p.m. INDICATION: Hypertension, coronary artery disease. FINDINGS: The heart size is within normal limits, and the heart does seem less prominent than noted on the prior exam of 06/01/2019. The left-sided defibrillator device seen previously is again evident and no different. There is still no sign of failure, pneumonia, or pleural effusion to indicate an acute abnormality. The mediastinum is not widened. The osseous structures are intact. IMPRESSION: There is no evidence for active disease. Dictated by: Dictated on workstation # [id number]
[2019-07-30 15:59] LABS: ALANINE AMINOTRANSFERASE 16 U/L (0-55); ALBUMIN 4.4 GM/DL (3.2-4.5); ALKALINE PHOSPHATASE 93 U/L (40-136); BILIRUBIN,TOTAL 0.4 MG/DL (0.1-1.0); BUN/CREATININE RATIO 20; CALCIUM 9.5 MG/DL (8.5-10.1); CARBON DIOXIDE 21 MMOL/L (21-32); CHLORIDE 106 MMOL/L (98-107); CHOLESTEROL 253 MG/DL (< 200); CREATININE SERUM 0.81 MG/DL (0.60-1.30); GFR ESTIMATED > 60; GLUCOSE 119 MG/DL (70-105); HDL CHOLESTEROL 48 MG/DL (40-60); SODIUM 137 MMOL/L (135-145); TOTAL PROTEIN 7.8 GM/DL (6.4-8.2); TRIGLYCERIDES 154 MG/DL (<150); VLDL CHOLESTEROL 31 MG/DL (5-40)
== END ==
LOC: RAD 15:09
PROVIDERS: ATTEND Internal Medicine Cardiovascular Disease
DX: I34.0 Nonrheumatic mitral (valve) insufficiency (principal); I10 Essential (primary) hypertension; I25.10 Atherosclerotic heart disease of native coronary artery without angina pectoris; Z72.0 Tobacco use
CPT/HCPCS: 36415; 71046; 80053; 80061

== ENCOUNTER → 2019-11-07 | Outpatient (CLI) | payer OTHER | LOC: CARD 15:12 | PROVIDERS: ATTEND Internal Medicine Cardiovascular Disease | DX: I11.0 Hypertensive heart disease with heart failure (principal); I50.9 Heart failure, unspecified; I25.10 Atherosclerotic heart disease of native coronary artery without angina pectoris; E78.2 Mixed hyperlipidemia | CPT/HCPCS: 93306 ==

== ENCOUNTER → 2020-03-26 | Outpatient (CLI) | payer SELFPAY ==
[~2020-03-26] MED LIST changes: -ENAL2.5T PO; +ENLP2.5T PO
== END ==
LOC: CARD 12:47
PROVIDERS: ATTEND Internal Medicine Cardiovascular Disease
DX: E11.9 Type 2 diabetes mellitus without complications (principal); I25.10 Atherosclerotic heart disease of native coronary artery without angina pectoris; I10 Essential (primary) hypertension; I08.1 Rheumatic disorders of both mitral and tricuspid valves
CPT/HCPCS: 93306

== ENCOUNTER 2020-05-15 17:07 | Emergency (ER) | payer SELFPAY ==
[~2020-05-15] VITALS: Ht 170.2 cm; Wt 86.2 kg
[2020-05-15 17:10] VITALS: BP 145/82
[2020-05-15] MEDS ORDERED: LIDOCAINE 1% INJ 20 ML 20 ML VIAL INJ ONE (17:15)
[2020-05-15] MEDS ORDERED: LIDOCAINE 2% VISCOUS 15 ML UDC PO ONE (17:15)
[2020-05-15] MEDS ORDERED: cefTRIAXone 1,000 MG/2.86 ml vial (IM ONLY) IM SCH (17:15)
[2020-05-15] MEDS ORDERED: NAPR-1071 PO (17:19)
[2020-05-15] MEDS ORDERED: AMOX500C2 PO (17:19)
--- NOTE | 2020-05-15 17:19 | ED EENT ---
History of Present Illness General Stated Complaint: DENTAL PAIN Source: patient Exam Limitations: no limitations History of Present Illness Date Seen by Provider: May 15, 2020 Time Seen by Provider: 17:15 Initial Comments To ER with right upper dental pain for a few days. This began after she had a loose tooth, she pulled this at home herself and has ultimately had some pain. Timing/Duration: abrupt Severity: moderate Location: dental Associated Symptoms: denies symptoms Allergies and Home Medications Allergies Coded Allergies: No Known Drug Allergies (Unverified , 11/20/11) Home Medications Albuterol Sulfate 2.5 Mg/3 Ml Vial.neb, 2.5 MG INH Q4H PRN for WHEEZING Prescribed by: JESUS WILLSON on 06/01/191805 Enalapril Maleate 2.5 Mg Tablet, 2.5 MG PO DAILY, (Reported) Furosemide 40 Mg Tablet, 40 MG PO DAILY, (Reported) Furosemide 40 Mg Tablet, 40 MG PO DAILY Prescribed by: JESUS WILLSON on 06/01/191805 Ibuprofen 200 Mg Tablet, 600-800 MG PO TID PRN for PAIN, (Reported) TAKES 3-4 (200MG) TABLETS Metoprolol Tartrate 25 Mg Tablet, 25 MG PO BID, (Reported) Multivitamin 1 Each Capsule, 1 TAB PO DAILY, (Reported) Naproxen Sodium 550 Mg Tablet, 550 MG PO BID Prescribed by: JF HANSON on 10/02/181542 Potassium Chloride 10 Meq Tab.er.prt, 10 MEQ PO DAILY, (Reported) Potassium Chloride 20 Meq Tablet.er, 20 MEQ PO DAILY Prescribed by: JESUS WILLSON on 06/01/191805 Prednisone 20 Mg Tab, 40 MG PO DAILY Prescribed by: JF HANSON on 10/02/18 154 Patient Home Medication List Home Medication List Reviewed: Yes Review of Systems Review of Systems Constitutional: see HPI Eyes: No Symptoms Reported Ears: No Symptoms Reported Nose: no symptoms reported Mouth: see HPI Respiratory: no symptoms reported Cardiovascular: no symptoms reported Musculoskeletal: no symptoms reported Past Owywcwk-Ctxqye-Ebmtde Hx Patient Social History Type Used: Cigarettes Recent Foreign Travel: No Contact w/Someone Who Travel: No Immunizations Up To Date Tetanus Booster (TDap): Less than 5yrs PED Vaccines UTD: Yes Date of Pneumonia Vaccine: Sep 15, 2015 Seasonal Allergies Seasonal Allergies: No Past Medical History Surgeries: Yes (CLEFT PALATE) Section, Pacemaker, Tonsillectomy, Tubal Ligation Respiratory: No Cardiac: Yes (chf) High Cholesterol, Hypertension Neurological: Yes Headaches /Migraines Reproductive Disorders: No 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 0.0oz. [id number]; 28.00 BMI Method:Stated General Appearance: WD/WN, no apparent distress Eyes: bilateral eye normal inspection, bilateral eye PERRL, bilateral eye EOMI Ears: bilateral ear auricle normal, bilateral ear canal normal, bilateral ear TM normal Mouth/Throat: pharynx normal; No maxillary swelling; other (Only a few remaining teeth which are carious and surrounded by gingivitis. 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 Decision time for Depature: 17:17 Referrals: DORA ROMERO MD (PCP/Family) Primary Care Physician Patient Instructions: Dental Pain Add. Discharge Instructions: 1. Return to ER for any concerns 2. Follow-up with your dentist next week. Antibiotics have been sent to [facility] across the street. Scripts Naproxen (Naprosyn) 500 Mg Tablet 500 MG PO BID PRN for PAIN-SEVERE (8-10), #30 TAB 0 Refills Prov: GUIDO LOVING APRN 05/15/20 Amoxicillin (Amoxicillin) 500 Mg Capsule 500 MG PO TID, #21 CAP 0 Refills Prov: GUIDO LOVING APRN 05/15/20 Images Mouth/Nose 1 - Tenderness GUIDO LOVING APRN May 15, 2020 17:19
== END 2020-05-15 17:35 | disposition home or self-care (01) ==
LOC: EDUNIT# 17:07 → ER 17:08
DX: K08.89 Other specified disorders of teeth and supporting structures (principal); I10 Essential (primary) hypertension; Z82.49 Family history of ischemic heart disease and other diseases of the circulatory system; Z95.0 Presence of cardiac pacemaker; Z79.52 Long term (current) use of systemic steroids
CPT/HCPCS: 99284

== ENCOUNTER 2020-12-30 23:04 | Emergency (ER) | payer SELFPAY ==
[~2020-12-30] VITALS: Ht 170.1 cm; Wt 75.0 kg
[~2020-12-30 23:04] MED LIST changes: +NAPR-1071 PO
[2020-12-30 23:37] LABS: BASOPHILS # (AUTO) 0.1 10^3/uL (0.0-0.1); BASOPHILS % (AUTO) 1 % (0-10); EOSINOPHILS # (AUTO) 0.3 10^3/uL (0.0-0.3); EOSINOPHILS % (AUTO) 2 % (0-10); HEMATOCRIT 45 % (35-52); HEMOGLOBIN 14.8 g/dL (11.5-16.0); LYMPHOCYTES # (AUTO) 2.3 10^3/uL (1.0-4.0); LYMPHOCYTES % (AUTO) 20 % (12-44); MEAN CORPUSCULAR HEMOGLOBIN 29 pg (25-34); MEAN CORPUSCULAR HGB CONC 33 g/dL (32-36); MEAN CORPUSCULAR VOLUME 87 fL (80-99); MEAN PLATELET VOLUME 11.4 fL (9.0-12.2); MONOCYTES # (AUTO) 0.9 10^3/uL (0.0-1.0); MONOCYTES % (AUTO) 8 % (0-12); NEUTROPHILS % (AUTO) 68 % (42-75); PLATELET COUNT 310 10^3/uL (130-400); WHITE BLOOD COUNT 11.6 10^3/uL (4.3-11.0)
--- NOTE | 2020-12-30 23:37 | ED Respiratory ---
General Chief Complaint: Respiratory Problems Stated Complaint: SOB,CHF,PACEMAKER Nursing Triage Note: SOB x2 days. No other complaints. Hx of CHF. Source: patient Exam Limitations: no limitations History of Present Illness Date Seen by Provider: Dec 30, 2020 Time Seen by Provider: 23:25 Initial Comments Patient is a 55-year-old female who presents to the emergency department today with a chief complaint of shortness of breath. Patient states she had onset of symptoms last evening when she was going to sleep. She states that she felt very short of breath when she laid down. She states that with any amount of exertion such as walking in from the car to the hospital she gets very short of breath. She denies discrete chest pain but states that she has some discomfort. Patient tells me she has a history of CHF related to [place] spotted fever which caused her to get a defibrillator back in 2015. Patient follows with Dr. Gardiner. Per review of her medical record the patient's EF was 35%. Patient denies any recent fevers, chills, cough or congestion. No nausea, vomiting or diarrhea. While I was talking with the patient she suddenly jumped up from the bed and was noted to have an 7-8 beat run of V. tach on the monitor. Patient states that she felt her heart start to race. This spontaneously resolved. Patient tells me that she ran out of her Lasix several days ago and went without it for about 3 or 4 days. She also ran out of her metoprolol and borrowed some from a friend and took some this evening. She denies being diabetic but states that she used to be. All other review of systems reviewed and negative except as stated above. Timing/Duration: yesterday Severity: moderate Modifying Factors: Worse With Lying Down; Improves With Rest Associated Symptoms: shortness of breath Allergies and Home Medications Allergies Coded Allergies: No Known Drug Allergies (Unverified , 11/20/11) Home Medications Albuterol Sulfate 2.5 Mg/3 Ml Vial.neb, 2.5 MG INH Q4H PRN for WHEEZING Prescribed by: JESUS WILLSON on 06/01/19 1806 Amoxicillin 500 Mg Capsule, 500 MG PO TID Prescribed by: GUIDO LOVING on 05/15/20 1719 Enalapril Maleate 2.5 Mg Tablet, 2.5 MG PO DAILY, (Reported) Furosemide 40 Mg Tablet, 40 MG PO DAILY, (Reported) Furosemide 40 Mg Tablet, 40 MG PO DAILY Prescribed by: JESUS WILLSON on 06/01/191805 Furosemide 40 Mg Tablet, 40 MG PO DAILY Prescribed by: JUAN LUIS HATHAWAY on 12/31/20111 Ibuprofen 200 Mg Tablet, 600-800 MG PO TID PRN for PAIN, (Reported) TAKES 3-4 (200MG) TABLETS Metformin HCl 500 Mg Tablet, 500 MG PO DAILY Prescribed by: JUAN LUIS HATHAWAY on 12/31/20115 Metoprolol Succinate 50 Mg Tab.er.24h, 50 MG PO DAILY Prescribed by: JUAN LUIS HATHAWAY on 12/31/20111 Metoprolol Tartrate 25 Mg Tablet, 25 MG PO BID, (Reported) Multivitamin 1 Each Capsule, 1 TAB PO DAILY, (Reported) Naproxen 500 Mg Tablet, 500 MG PO BID PRN for PAIN-SEVERE (8-10) Prescribed by: GUIDO LOVING on 05/15/20 171 Naproxen Sodium 550 Mg Tablet, 550 MG PO BID Prescribed by: JF HANSON on 10/02/18 154 Potassium Chloride 10 Meq Tab.er.prt, 10 MEQ PO DAILY, (Reported) Potassium Chloride 20 Meq Tablet.er, 20 MEQ PO DAILY Prescribed by: JESUS WILLSON on 06/01/191805 Prednisone 20 Mg Tab, 40 MG PO DAILY Prescribed by: JF HANSON on 10/02/181542 Patient Home Medication List Home Medication List Reviewed: Yes Review of Systems Review of Systems Constitutional: see HPI EENTM: no symptoms reported Respiratory: dyspnea on exertion, orthopnea, short of breath Cardiovascular: no symptoms reported Gastrointestinal: no symptoms reported Genitourinary: no symptoms reported Musculoskeletal: no symptoms reported Skin: no symptoms reported All Other Systems Reviewed Negative Unless Noted: Yes Past Dignvbr-Egvgtn-Utevyp Hx Patient Social History Tobacco Use?: Yes Tobacco type used: Cigarettes Smoking Status: Current Everyday Smoker Substance use?: No Alcohol Use?: No Pt feels they are or have been: No Immunizations Up To Date Tetanus Booster (TDap): Less than 5yrs PED Vaccines UTD: Yes Seasonal Allergies Seasonal Allergies: No Past Medical History Surgeries: Yes (CLEFT PALATE) Section, Pacemaker, Tonsillectomy, Tubal Ligation Respiratory: No Cardiac: Yes (chf) High Cholesterol, Hypertension Neurological: Yes Headaches /Migraines 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 Sexually Transmitted Disease: No Gastrointestinal: No Irritable Bowel Musculoskeletal: No Endocrine: Yes Diabetes, Non-Insulin dep Cancer: No Psychosocial: No Integumentary: No Blood Disorders: No Adverse Reaction/Blood Tranf: No Family Medical History Hypertension 19 FATHER 19 MOTHER Myocardial infarction 19 FATHER No Pertinent Family Hx, Heart Disease, CAD Under 55 Years Old, Hypertension Physical Exam Vital Signs - First Documented 12/30/20 23:09 Temp 36.2 Pulse 84 Resp 24 B/P (MAP) 129/82 (98) Pulse Ox 97 O2 Delivery Room Air Capillary Refill : Less Than 3 Seconds Height: 5'7.00" Weight: 190lbs. 0.0oz. 86.607961xl; 25.00 BMI Method:Stated General Appearance: WD/WN, no apparent distress Eyes: Bilateral Eye Normal Inspection, Bilateral Eye PERRL, Bilateral Eye EOMI Neck: normal inspection Respiratory: lungs clear, normal breath sounds, no respiratory distress, no accessory muscle use Cardiovascular: regular rate, rhythm Gastrointestinal: normal bowel sounds, non tender, soft Extremities: normal range of motion, non-tender, normal inspection, no pedal edema Neurologic/Psychiatric: alert, normal mood/affect, oriented x 3 Skin: normal color, warm/dry Progress/Results/Core Measures Suspected Sepsis SIRS Temperature: Pulse: 84 Respiratory Rate: 24 Laboratory Tests 12/30/20 23:14: White Blood Count 11.6H Blood Pressure 129 /82 Mean: 98 Laboratory Tests 12/30/20 23:14: Creatinine 1.41H, Platelet Count 310 Results/Orders Lab Results Laboratory Tests Test 12/30/20 23:14 Range/Units White Blood Count 11.6 H 4.3-11.0 10^3/uL Red Blood Count 5.20 H 3.80-5.11 10^6/uL Hemoglobin 14.8 11.5-16.0 g/dL Hematocrit 45 35-52 % Mean Corpuscular Volume 87 80-99 fL Mean Corpuscular Hemoglobin 29 25-34 pg Mean Corpuscular Hemoglobin Concent 33 32-36 g/dL Red Cell Distribution Width 14.2 10.0-14.5 % Platelet Count 310 130-400 10^3/uL Mean Platelet Volume 11.4 9.0-12.2 fL Immature Granulocyte % (Auto) 1 % Neutrophils (%) (Auto) 68 42-75 % Lymphocytes (%) (Auto) 20 12-44 % Monocytes (%) (Auto) 8 0-12 % Eosinophils (%) (Auto) 2 0-10 % Basophils (%) (Auto) 1 0-10 % Neutrophils # (Auto) 8.0 H 1.8-7.8 10^3/uL Lymphocytes # (Auto) 2.3 1.0-4.0 10^3/uL Monocytes # (Auto) 0.9 0.0-1.0 10^3/uL Eosinophils # (Auto) 0.3 0.0-0.3 10^3/uL Basophils # (Auto) 0.1 0.0-0.1 10^3/uL Immature Granulocyte # (Auto) 0.1 0.0-0.1 10^3/uL Sodium Level 136 135-145 MMOL/L Potassium Level 4.2 3.6-5.0 MMOL/L Chloride Level 100 98-107 MMOL/L Carbon Dioxide Level 21 21-32 MMOL/L Anion Gap 15 H 5-14 MMOL/L Blood Urea Nitrogen 22 H 7-18 MG/DL Creatinine 1.41 H 0.60-1.30 MG/DL Estimat Glomerular Filtration Rate 39 BUN/Creatinine Ratio 16 Glucose Level 311 H 70-105 MG/DL Calcium Level 9.5 8.5-10.1 MG/DL Magnesium Level 2.0 1.6-2.4 MG/DL Total Creatine Kinase 46 29-168 U/L Creatine Kinase MB 1.4 <6.6 NG/ML Troponin I 0.028 <0.028 NG/ML B-Type Natriuretic Peptide 1289.0 H <100.0 PG/ML My Orders Orders - JUAN LUIS HATHAWAY MD Ed Iv/Invasive Line Start (12/30/20 23:32) Cbc With Automated Diff (12/30/20 23:32) Basic Metabolic Panel (12/30/20 23:32) Creatine Kinase (12/30/20 23:32) Creatine Kinase Mb (12/30/20 23:32) Troponin I (12/30/20 23:32) Ekg Tracing (12/30/20 23:32) Chest 1 View, Ap/Pa Only (12/30/20 23:32) Magnesium (12/30/20 23:32) BNP (12/30/20 23:32) Vital Signs/I&O 12/30/20 12/31/20 23:09 01:24 Temp 36.2 Pulse 84 82 Resp 24 20 B/P (MAP) 129/82 (98) 137/87 Pulse Ox 97 98 O2 Delivery Room Air Room Air Capillary Refill : Less Than 3 Seconds Blood Pressure Mean: 98 Progress Note : Time: 01:16 Progress Note Had a long discussion with the patient regarding her laboratory findings including her elevated creatinine and decreased GFR, her elevated blood sugar. I have advised the patient that she is not in congestive heart failure this evening. She has been out of her medications, metoprolol and Lasix and I told her that I would give her 2 weeks worth of this medication. She also told me that she used to be on Metformin and I told her that I would restart her on this as well. I have strongly encouraged the patient to call [facility] tomorrow for a follow-up appointment very soon with her primary care physician. She will need her renal functions reevaluated in a week or so. Patient looks a little dehydrated she is got dry oral mucosa, she has that elevated creatinine. I have encouraged her to drink but not too much so that she does not tip herself over into congestive heart failure. I have also encouraged her to follow-up with Dr. Gardiner. I reviewed her BNP and it is down from previous evaluations here in the emergency department. The patient is comfortable and ready for discharge. She does not really want to be admitted to the hospital. I suspect her shortness of breath comes from a variety of etiologies including the blood sugar, her [place] cardiomyopathy, and smoking history. I do not believe the patient has any clinical or objective findings to warrant admission at this time. She did have that small run of ventricular tachycardia but that is why the patient has her defibrillator implanted. She has not had a firing of her defibrillator and I told her that if she did she needed to come to the hospital. Patient verbalizes understanding. All questions are sought and answered. Patient is stable for discharge. ECG Initial ECG Impression Date: Dec 31, 2020 Initial ECG Impression Time: 23:15 Initial ECG Rate: 84 Initial ECG Rhythm: Normal Sinus Initial ECG Intervals IN 158 QRS 106 QTC 509 Comment Left ventricular hypertrophy, no ST segment elevation or depression or ectopy is noted on this EKG Diagnostic Imaging Diagonstic Imaging: Xray Plain Films/CT/US/NM/MRI: chest Comments Chest x-ray reviewed by me, no increased pulmonary vascular congestion is noted, no effusions or infiltrates. ICD is noted to be in place in the left chest. Departure Impression Primary Impression: Dyspnea Qualified Codes: R06.00 - Dyspnea, unspecified Additional Impressions: History of CHF (congestive heart failure) Hyperglycemia due to diabetes mellitus Disposition: HOME, SELF-CARE Condition: Stable Departure-Patient Inst. Decision time for Depature: 01:10 Referrals: DORA ROMERO MD (PCP/Family) Primary Care Physician ANA CRISTINA ROLDAN MD Patient Instructions: Shortness of Breath, Adult ED Add. Discharge Instructions: Continue to take your metoprolol, 50 mg twice daily. I have also given you a refill of 2 weeks of your Lasix 40 mg daily. Take this as directed. Please call Dr. Romero's office tomorrow as well as 's office for a follow-up appointment. Please come back to the emergency department if you have worsening shortness of breath especially associated with chest pain, if your defibrillator fires or for any other emergent concerning symptoms. Scripts Metformin HCl (Metformin HCl) 500 Mg Tablet 500 MG PO DAILY, #14 TAB Prov: JUAN LUIS HATHAWAY MD 12/31/20 Metoprolol Succinate (Metoprolol Succinate) 50 Mg Tab.er.24h 50 MG PO DAILY, #28 TAB Prov: JUAN LUIS HATHAWAY MD 12/31/20 Furosemide (Lasix) 40 Mg Tablet 40 MG PO DAILY, #14 TAB Prov: JUAN LUIS HATHAWAY MD 12/31/20 Copy Copies To 1: DORA ROMERO MD; ANA CRISTINA ROLDAN MD, KATHRYN M MD Dec 30, 2020 23:36
[2020-12-30 23:43] LABS: POTASSIUM 4.2 MMOL/L (3.6-5.0)
[2020-12-30 23:44] LABS: CALCIUM 9.5 MG/DL (8.5-10.1)
[2020-12-30 23:48] LABS: CREATININE SERUM 1.41 MG/DL (0.60-1.30)
[2020-12-30 23:57] LABS: CREATINE KINASE MB 1.4 NG/ML (<6.6)
[2020-12-31] MEDS ORDERED: METO50TA7 PO (01:12)
[2020-12-31] MEDS ORDERED: FURO-124 PO (01:12)
[2020-12-31] MEDS ORDERED: METF-397 PO (01:16)
[2020-12-31 01:24] VITALS: BP 137/87
--- NOTE | 2020-12-31 06:23 | Diagnostic Imaging Report ---
INDICATION: Shortness of breath. Comparison with 12/16/2015. FINDINGS: There is cardiomegaly. ICD pacer is present on the left. Lungs are well-aerated and clear. No pneumothorax or pleural effusion. No bony abnormalities. IMPRESSION: Cardiomegaly without acute change. Dictated by: Dictated on workstation # [id number]
== END 2020-12-31 01:15 | disposition home or self-care (01) ==
LOC: EDUNIT# 23:04 → ER 23:07
DX: R06.00 Dyspnea, unspecified (principal); I11.0 Hypertensive heart disease with heart failure; I50.9 Heart failure, unspecified; E11.65 Type 2 diabetes mellitus with hyperglycemia; F17.210 Nicotine dependence, cigarettes, uncomplicated; Z79.52 Long term (current) use of systemic steroids; Z79.899 Other long term (current) drug therapy
CPT/HCPCS: 36415; 71045; 80048; 82550; 82553; 83735; 83880; 84484; 85025; 93005

== ENCOUNTER 2021-01-17 00:48 | Inpatient (IN) | payer OTHER ==
[~2021-01-17] VITALS: Ht 170.1 cm; Wt 75.0 kg
[~2021-01-17 00:48] MED LIST changes: +METF-397 PO; +METO50TA7 PO
--- NOTE | 2021-01-17 01:20 | ED Respiratory ---
General Chief Complaint: Respiratory Problems Stated Complaint: SOA/COUGH Nursing Triage Note: Pt ambulatory into ER with complaint of SOA x1 week. Pt states that she is currently staying at hotel here in town and covid is going around there. Pt states that she has been having periods of SOA at rest and with minimal exertion. Pt states that she woke up SOA this AM. Source: patient Exam Limitations: no limitations History of Present Illness Date Seen by Provider: Jan 17, 2021 Time Seen by Provider: 00:52 Initial Comments Patient to the ER by private conveyance with chief complaint of shortness of breath of the past week. Started in the last 6 months. Was discovered to have some heart failure and followed by Dr. Santiago. She takes Lasix 40 mg a day. She is increased in her orthopnea as well as swelling around her middle and decreased urine output. No fevers chills or productive cough. No sick contacts. No COVID-19 vaccination. EF less than 35% with nonischemic cardiomyopathy, diabetes mellitus and mitral regurgitation. Allergies and Home Medications Allergies Coded Allergies: No Known Drug Allergies (Unverified , 11/20/11) Home Medications Albuterol Sulfate 2.5 Mg/3 Ml Vial.neb, 2.5 MG INH Q4H PRN for WHEEZING Prescribed by: JESUS WILLSON on 06/01/191805 Amoxicillin 500 Mg Capsule, 500 MG PO TID Prescribed by: GUIDO LOVING on 05/15/201718 Enalapril Maleate 2.5 Mg Tablet, 2.5 MG PO DAILY, (Reported) Furosemide 40 Mg Tablet, 40 MG PO DAILY, (Reported) Furosemide 40 Mg Tablet, 40 MG PO DAILY Prescribed by: JESUS WILLSON on 06/01/191805 Furosemide 40 Mg Tablet, 40 MG PO DAILY Prescribed by: JUAN LUIS HATHAWAY on 12/31/20111 Ibuprofen 200 Mg Tablet, 600-800 MG PO TID PRN for PAIN, (Reported) TAKES 3-4 (200MG) TABLETS Metformin HCl 500 Mg Tablet, 500 MG PO DAILY Prescribed by: JUAN LUIS HATHAWAY on 12/31/20115 Metoprolol Succinate 50 Mg Tab.er.24h, 50 MG PO DAILY Prescribed by: JUAN LUIS HATHAWAY on 12/31/20111 Metoprolol Tartrate 25 Mg Tablet, 25 MG PO BID, (Reported) Multivitamin 1 Each Capsule, 1 TAB PO DAILY, (Reported) Naproxen 500 Mg Tablet, 500 MG PO BID PRN for PAIN-SEVERE (8-10) Prescribed by: GUIDO LOVING on 05/15/20 1719 Naproxen Sodium 550 Mg Tablet, 550 MG PO BID Prescribed by: JF HANSON on 10/02/18 1543 Potassium Chloride 10 Meq Tab.er.prt, 10 MEQ PO DAILY, (Reported) Potassium Chloride 20 Meq Tablet.er, 20 MEQ PO DAILY Prescribed by: JESUS WILLSON on 06/01/19 1806 Prednisone 20 Mg Tab, 40 MG PO DAILY Prescribed by: JF HANSON on 10/02/18 1543 Patient Home Medication List Home Medication List Reviewed: Yes Review of Systems Review of Systems Constitutional: No chills, No diaphoresis EENTM: No ear discharge, No ear pain Respiratory: No cough; short of breath; No wheezing Cardiovascular: No chest pain, No edema Gastrointestinal: No abdominal pain, No nausea, No vomiting Genitourinary: No discharge, No dysuria Musculoskeletal: No back pain, No joint pain All Other Systems Reviewed Negative Unless Noted: Yes Past Uhyjppt-Bxivcr-Rhtxui Hx Patient Social History Tobacco Use?: Yes Tobacco type used: Cigarettes Smoking Status: Current Everyday Smoker Use of E-Cig and/or Vaping dev: No Substance use?: No Alcohol Use?: No Pt feels they are or have been: No Immunizations Up To Date Tetanus Booster (TDap): Less than 5yrs PED Vaccines UTD: Yes Seasonal Allergies Seasonal Allergies: No Past Medical History Surgeries: Yes (CLEFT PALATE) Section, Pacemaker, Tonsillectomy, Tubal Ligation Respiratory: No Cardiac: Yes (chf) High Cholesterol, Hypertension Neurological: Yes Headaches /Migraines Reproductive Disorders: No 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 Sexually Transmitted Disease: No Gastrointestinal: No Irritable Bowel Musculoskeletal: No Endocrine: Yes Diabetes, Non-Insulin dep Cancer: No Psychosocial: No Integumentary: No Blood Disorders: No Adverse Reaction/Blood Tranf: No Family Medical History Hypertension 19 FATHER 19 MOTHER Myocardial infarction 19 FATHER No Pertinent Family Hx, Heart Disease, CAD Under 55 Years Old, Hypertension Physical Exam Vital Signs - First Documented 01/17/21 01:14 Temp 36.6 Pulse 91 Resp 24 B/P (MAP) 134/110 (118) Pulse Ox 99 O2 Delivery Room Air Capillary Refill : Less Than 3 Seconds Height: 5'7.00" Weight: 190lbs. 0.0oz. [id number]; 25.00 BMI Method:Stated General Appearance: WD/WN, mild distress Eyes: Bilateral Eye Normal Inspection, Bilateral Eye PERRL, Bilateral Eye EOMI HEENT: PERRL/EOMI, pharynx normal Neck: full range of motion, normal inspection Respiratory: lungs clear, no respiratory distress, no accessory muscle use, decreased breath sounds Cardiovascular: normal peripheral pulses, regular rate, rhythm Gastrointestinal: normal bowel sounds, non tender, soft Extremities: normal range of motion, non-tender, normal inspection, normal capillary refill Neurologic/Psychiatric: alert, normal mood/affect, oriented x 3 Skin: normal color, warm/dry Progress/Results/Core Measures Suspected Sepsis SIRS Temperature: Pulse: 91 Respiratory Rate: 24 Laboratory Tests 01/17/21 01:07: White Blood Count 11.8H Blood Pressure 134 /110 Mean: 118 Laboratory Tests 01/17/21 01:07: Creatinine 1.34H, Platelet Count 204, Total Bilirubin 0.9 Results/Orders Lab Results Laboratory Tests Test 01/17/21 00:53 01/17/21 01:05 01/17/21 01:07 Range/Units Influenza Type A (RT-PCR) Not Detected Not Detecte Influenza Type B (RT-PCR) Not Detected Not Detecte SARS-CoV-2 RNA (RT-PCR) Not Detected Not Detecte C-Reactive Protein High Sensitivity 1.15 H 0.00-0.50 MG/DL White Blood Count 11.8 H 4.3-11.0 10^3/uL Red Blood Count 4.67 3.80-5.11 10^6/uL Hemoglobin 13.2 11.5-16.0 g/dL Hematocrit 42 35-52 % Mean Corpuscular Volume 90 80-99 fL Mean Corpuscular Hemoglobin 28 25-34 pg Mean Corpuscular Hemoglobin Concent 32 32-36 g/dL Red Cell Distribution Width 15.7 H 10.0-14.5 % Platelet Count 204 130-400 10^3/uL Mean Platelet Volume 12.2 9.0-12.2 fL Immature Granulocyte % (Auto) 1 % Neutrophils (%) (Auto) 51 42-75 % Lymphocytes (%) (Auto) 37 12-44 % Monocytes (%) (Auto) 8 0-12 % Eosinophils (%) (Auto) 2 0-10 % Basophils (%) (Auto) 1 0-10 % Neutrophils # (Auto) 6.0 1.8-7.8 10^3/uL Lymphocytes # (Auto) 4.4 H 1.0-4.0 10^3/uL Monocytes # (Auto) 1.0 0.0-1.0 10^3/uL Eosinophils # (Auto) 0.3 0.0-0.3 10^3/uL Basophils # (Auto) 0.1 0.0-0.1 10^3/uL Immature Granulocyte # (Auto) 0.1 0.0-0.1 10^3/uL Blood Gas Puncture Site L RAD Blood Gas Patient Temperature 94 Arterial Blood pH 7.37 7.37-7.43 Arterial Blood Partial Pressure CO2 41 35-45 MMHG Arterial Blood Partial Pressure O2 30 *L 79-93 MMHG Arterial Blood HCO3 23 23-27 MMOL/L Arterial Blood Total CO2 24.4 21.0-31.0 MMOL/L Arterial Blood Oxygen Saturation 38 L 94-100 % Arterial Blood Base Excess -1.4 -2.5-2.5 MMOL/L Jeffery Test YES-POS Blood Gas Ventilator Setting NO Blood Gas Inspired Oxygen ROOM Sodium Level 141 135-145 MMOL/L Potassium Level 3.7 3.6-5.0 MMOL/L Chloride Level 104 98-107 MMOL/L Carbon Dioxide Level 21 21-32 MMOL/L Anion Gap 16 H 5-14 MMOL/L Blood Urea Nitrogen 20 H 7-18 MG/DL Creatinine 1.34 H 0.60-1.30 MG/DL Estimat Glomerular Filtration Rate 41 BUN/Creatinine Ratio 15 Glucose Level 256 H 70-105 MG/DL Calcium Level 9.4 8.5-10.1 MG/DL Corrected Calcium 9.4 8.5-10.1 MG/DL Total Bilirubin 0.9 0.1-1.0 MG/DL Aspartate Amino Transf (AST/SGOT) 67 H 5-34 U/L Alanine Aminotransferase (ALT/SGPT) 68 H 0-55 U/L Alkaline Phosphatase 243 H 40-136 U/L Troponin I 0.060 H <0.028 NG/ML B-Type Natriuretic Peptide 2620.3 H <100.0 PG/ML Total Protein 7.2 6.4-8.2 GM/DL Albumin 4.0 3.2-4.5 GM/DL My Orders Orders - JESUS WILLSON Continuous Ekg Monitoring (01/17/21 01:06) Ekg Tracing (01/17/21 01:06) Chest 1 View, Ap/Pa Only (01/17/21 01:06) Cbc With Automated Diff (01/17/21 01:06) Comprehensive Metabolic Panel (01/17/21 01:06) Arterial Blood Gas (01/17/21 01:06) Covid 19 Inhouse Test (01/17/21 01:06) Influenza A And B By Pcr (01/17/21 01:06) Troponin I (01/17/21 01:06) BNP (01/17/21 01:06) Hs C Reactive Protein (01/17/21:21) Vital Signs/I&O 01/17/21 01:14 Temp 36.6 Pulse 91 Resp 24 B/P (MAP) 134/110 (118) Pulse Ox 99 O2 Delivery Room Air Capillary Refill : Less Than 3 Seconds Blood Pressure Mean: 118 Progress Note : Time: 01:26 Progress Note Suspect heart failure. We did do a Covid swab and get a chest x-ray labs EKG. ABG showed hypoxemia so we put her on 2 L and will titrate to patient comfort. 40mg lasix iv ECG Initial ECG Impression Date: Jan 17, 2021 Initial ECG Impression Time: 01:07 Initial ECG Rate: 90 Initial ECG Rhythm: Normal Sinus Initial ECG Intervals: QT (504) Initial ECG Impression: Normal, Nonspecific Changes Comment Normal sinus rhythm with prolonged QTC. No clinically relevant ST elevation or depression. Diagnostic Imaging Diagonstic Imaging: Xray Plain Films/CT/US/NM/MRI: chest Comments Mild pulmonary congestion Reviewed: Reviewed by Me Departure Communication (Admissions) Time/Spoke to Admitting Phy: 02:15 Discussed the case with Dr. Perez and she agrees to admit the patient to the floor with oxygen and Lasix. Time/Spoke to Consulting Phy: 02:22 Discussed the case with Dr. Travis and he agrees to consult on the case. Impression Primary Impression: Acute respiratory failure with hypoxemia Additional Impression: Acute on chronic congestive heart failure Qualified Codes: I50.23 - Acute on chronic systolic (congestive) heart failure Disposition: 01 HOME, SELF-CARE Condition: Stable Admissions Decision to Admit Reason: Admit from ER (General) Decision to Admit/Date: Jan 17, 2021 Time/Decision to Admit Time: 02:09 Departure-Patient Inst. Referrals: DORA ROMERO MD (PCP/Family) Primary Care Physician JESUS WILLSON Jan 17, 2021 01:20
[2021-01-17 01:27] LABS: ABG BASE EXCESS -1.4 MMOL/L (-2.5-2.5); ABG OXYGEN SATURATION 38 % (94-100); ABG PCO2 41 MMHG (35-45); ABG PH 7.37 (7.37-7.43); ABG TCO2 24.4 MMOL/L (21.0-31.0)
[2021-01-17 01:28] LABS: ALLENS TEST YES-POS; INSPIRED O2 ROOM; PATIENT TEMP 94; VENTILATOR NO
[2021-01-17 01:29] LABS: ABG PO2 30 MMHG (79-93)
[2021-01-17 01:31] LABS: BASOPHILS # (AUTO) 0.1 10^3/uL (0.0-0.1); BASOPHILS % (AUTO) 1 % (0-10); EOSINOPHILS # (AUTO) 0.3 10^3/uL (0.0-0.3); EOSINOPHILS % (AUTO) 2 % (0-10); HEMATOCRIT 42 % (35-52); HEMOGLOBIN 13.2 g/dL (11.5-16.0); LYMPHOCYTES # (AUTO) 4.4 10^3/uL (1.0-4.0); LYMPHOCYTES % (AUTO) 37 % (12-44); MEAN CORPUSCULAR HEMOGLOBIN 28 pg (25-34); MEAN CORPUSCULAR HGB CONC 32 g/dL (32-36); MEAN CORPUSCULAR VOLUME 90 fL (80-99); MEAN PLATELET VOLUME 12.2 fL (9.0-12.2); MONOCYTES % (AUTO) 8 % (0-12); NEUTROPHILS % (AUTO) 51 % (42-75); PLATELET COUNT 204 10^3/uL (130-400); WHITE BLOOD COUNT 11.8 10^3/uL (4.3-11.0)
[2021-01-17 01:33] LABS: POTASSIUM 3.7 MMOL/L (3.6-5.0)
[2021-01-17 01:34] LABS: CALCIUM 9.4 MG/DL (8.5-10.1)
[2021-01-17 01:35] LABS: TOTAL PROTEIN 7.2 GM/DL (6.4-8.2)
[2021-01-17 01:37] LABS: BILIRUBIN,TOTAL 0.9 MG/DL (0.1-1.0)
[2021-01-17 01:39] LABS: CREATININE SERUM 1.34 MG/DL (0.60-1.30)
[2021-01-17] MEDS ORDERED: FUROSEMIDE 40 MG/4 ML INJ (LASIX) IVP ONE (02:30)
[2021-01-17] MEDS ORDERED: ENOXAPARIN 80 MG/0.8 ML (LOVENOX) SYR SC ONE (02:30)
[2021-01-17 04:28] VITALS: BP 120/81
[2021-01-17] MEDS ORDERED: ONDANSETRON 4 MG/2 ML (SDV) Z0FRAN IVP PRN (04:30)
[2021-01-17] MEDS ORDERED: ACETAMINOPHEN 325 MG TABLET PO PRN (04:30)
[2021-01-17] MEDS ORDERED: RT-ALBUTEROL SULF 2.5 MG/3 ML PRE-MIX VIAL INH PRN (04:30)
[2021-01-17] MEDS: inSUlin ASPART (NovoLOG) 1 UNIT/0.01 ML (CHARGE PER UNIT) SC SCH ×4 (06:09→20:20)
--- NOTE | 2021-01-17 06:50 | Progress Note - Hospitalist ---
Subjective HPI/CC On Admission Date Seen by Provider: Jan 17, 2021 Objective Exam Vital Signs Vital Signs Date Time Temp Pulse Resp B/P (MAP) Pulse Ox O2 Delivery O2 Flow Rate FiO2 01/17/21 04:48 Room Air 01/17/21 04:28 36.6 74 99 01/17/21 04:06 18 120/81 2.00 Capillary Refill : Less Than 3 Seconds Results/Procedures Lab Laboratory Tests 01/17/21 01:07 Patient resulted labs reviewed. YENI NEWMAN DO Jan 17, 2021 06:50
--- NOTE | 2021-01-17 06:50 | History & Physical-Hospitalist ---
History of Present Illness HPI/Chief Complaint Chief complaint: Shortness of breath from congestive heart failure History of present illness: This is a 55-year-old white female of [facility] who has a history of congestive heart failure in a patient of Dr. Santiago who presented to the ER with shortness of breath. She reports increased edema and abdominal girth. Patient was found to have acute exacerbation congestive heart failure with elevated troponin. Dr. Travis has been consulted. She previously was homeless but now she has an apartment. Check meds and labs and echocardiogram from March of last year. She has not seen Dr. Stubbs for over a year. Source: patient Exam Limitations: no limitations Date Seen 01/17/21 Time Seen by a Provider: 10:30 Attending Physician Bibi Newman DO PCP Chucky Lima MD Referring Physician Date of Admission Jan 17, 2021 at 02:15 Home Medications & Allergies Home Medications Reviewed patient Home Medication Reconciliation performed by pharmacy medication reconciliations dairy technician and/or nursing. Patients Allergies have been reviewed. Allergies Allergies Coded Allergies No Known Drug Allergies (Unverified11/20/11) Past Rwjomii-Itmhlm-Mskwoq Hx Patient Social History Marrital Status: single Employed/Student: unemployed Tobacco Use?: Yes Tobacco type used: Cigarettes Smoking Status: Current Everyday Smoker Use of E-Cig and/or Vaping dev: No Substance use?: No Alcohol Use?: No Pt feels they are or have been: No Immunizations Up To Date Tetanus Booster (TDap): Less Than 5 Years Hepatitis A: Yes Hepatitis B: Yes PED Vaccines UTD: Yes Date of Pneumonia Vaccine: Sep 15, 2015 Seasonal Allergies Seasonal Allergies: No Current Status status: No status: No Advance Directives: No Communicates: Verbally Primary Language: Latvian Preferred Spoken Language: Latvian Sensory deficits: Vision impairment Implanted or Applied Medical D: Pacemaker Past Medical History Surgeries: Section, Pacemaker, Tonsillectomy, Tubal Ligation Coronary Artery Disease, High Cholesterol, Hypertension 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 /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 Sexually Transmitted Disease: No Irritable Bowel Diabetes, Non-Insulin dep Blood Disorders: No Adverse Reaction/Blood Tranf: No Family Medical History Hypertension 19 FATHER 19 MOTHER Myocardial infarction 19 FATHER No Pertinent Family Hx, Heart Disease, CAD Under 55 Years Old, Hypertension Review of Systems Constitutional: see HPI, malaise, weakness Respiratory: dyspnea on exertion Cardiovascular: edema Physical Exam Physical Exam Vital Signs Vital Signs - First Documented 01/17/21 01/17/21 01:14 04:06 Temp 36.6 Pulse 91 Resp 24 B/P (MAP) 134/110 (118) Pulse Ox 99 O2 Delivery Room Air O2 Flow Rate 2.00 Capillary Refill : Less Than 3 Seconds Height, Weight, BMI Height: 5'7.00" Weight: 190lbs. 0.0oz. [id number]; 25.92 BMI Method:Stated General Appearance: No Apparent Distress, Chronically ill Eyes: Right Eye Normal Inspection, Right Eye PERRL HEENT: PERRL/EOMI, Normal ENT Inspection, Pharynx Normal, Moist Mucous Membranes Neck: Full Range of Motion, Normal Inspection, Non Tender Respiratory: Chest Non Tender, Lungs Clear, Normal Breath Sounds, No Accessory Muscle Use, No Respiratory Distress Cardiovascular: Regular Rate, Rhythm, No Edema, No Gallop, No JVD, No Murmur, Normal Peripheral Pulses Gastrointestinal: Normal Bowel Sounds, No Organomegaly, No Pulsatile Mass, Non Tender, Soft Back: Normal Inspection, No CVA Tenderness, No Vertebral Tenderness Extremity: Normal Capillary Refill, Normal Inspection, Normal Range of Motion, Non Tender, No Calf Tenderness, No Pedal Edema Neurologic/Psychiatric: Alert, Oriented x3, No Motor/Sensory Deficits, Normal Mood/Affect Skin: Normal Color, Warm/Dry Lymphatic: No Adenopathy Results Results/Procedures Labs Laboratory Tests 01/17/21 01:07 01/17/21 07:11 01/18/21 04:26 Patient resulted labs reviewed. Assessment/Plan Admission Diagnosis Assessment: Acute exacerbation of congestive heart failure Cardiomyopathy Permanent pacemaker Homelessness now living in an apartment Current smoker Plan: Replace potassium Appreciate cardiology Admission Status: Inpatient Order (span 2 midnights) Reason for Inpatient Admission: CHF Diagnosis/Problems Diagnosis/Problems (1) Cardiomyopathy BIBI NEWMAN DO Jan 17, 2021 06:50
[2021-01-17 07:44] VITALS: BP 126/84
[2021-01-17 07:58] LABS: BASOPHILS # (AUTO) 0.1 10^3/uL (0.0-0.1); BASOPHILS % (AUTO) 1 % (0-10); EOSINOPHILS # (AUTO) 0.2 10^3/uL (0.0-0.3); EOSINOPHILS % (AUTO) 2 % (0-10); HEMATOCRIT 37 % (35-52); HEMOGLOBIN 11.9 g/dL (11.5-16.0); LYMPHOCYTES # (AUTO) 2.2 10^3/uL (1.0-4.0); LYMPHOCYTES % (AUTO) 23 % (12-44); MEAN CORPUSCULAR HEMOGLOBIN 28 pg (25-34); MEAN CORPUSCULAR HGB CONC 32 g/dL (32-36); MEAN CORPUSCULAR VOLUME 87 fL (80-99); MONOCYTES # (AUTO) 0.7 10^3/uL (0.0-1.0); MONOCYTES % (AUTO) 7 % (0-12); NEUTROPHILS # (AUTO) 6.4 10^3/uL (1.8-7.8); NEUTROPHILS % (AUTO) 67 % (42-75); PLATELET COUNT 170 10^3/uL (130-400); WHITE BLOOD COUNT 9.6 10^3/uL (4.3-11.0)
[2021-01-17 08:13] LABS: ALBUMIN 3.7 GM/DL (3.2-4.5); POTASSIUM 3.4 MMOL/L (3.6-5.0)
[2021-01-17 08:14] LABS: CALCIUM 9.1 MG/DL (8.5-10.1)
[2021-01-17 08:15] LABS: TOTAL PROTEIN 6.8 GM/DL (6.4-8.2)
[2021-01-17 08:17] LABS: BILIRUBIN,TOTAL 0.8 MG/DL (0.1-1.0)
[2021-01-17 08:19] LABS: CREATININE SERUM 1.07 MG/DL (0.60-1.30)
--- NOTE | 2021-01-17 08:24 | Diagnostic Imaging Report ---
INDICATION: Cough, shortness of air, congestion. Covid 19 precautions. COMPARISON STUDY: Chest from December 30. FINDINGS: Frontal view of the chest demonstrates cardiomegaly with a cardiac defibrillator in place. The lungs are clear. The vascularity is normal. IMPRESSION: There is cardiomegaly. Dictated by: Dictated on workstation # [id number]
[2021-01-17] MEDS: ASPIRIN 81 MG CHEW (CHILDREN'S ASA) PO SCH (08:25)
[2021-01-17] MEDS: FUROSEMIDE 40 MG/4 ML INJ (LASIX) IVP SCH (08:26)
[2021-01-17] MEDS ORDERED: KCL 20 MEQ TAB (K-DUR) PO SCH (09:00)
[2021-01-17 11:26] VITALS: BP 119/82
[2021-01-17] MEDS: KCL 20 MEQ TAB (K-DUR) PO SCH ×2 (13:50→16:04)
[2021-01-17 15:02] LABS: TRIGLYCERIDES 187 MG/DL (<150); VLDL CHOLESTEROL 37 MG/DL (5-40)
[2021-01-17 15:06] LABS: CHOLESTEROL 95 MG/DL (< 200)
[2021-01-17 15:07] LABS: HDL CHOLESTEROL 27 MG/DL (40-60)
--- NOTE | 2021-01-17 15:12 | Consultation-Cardiology ---
HPI-Cardiology Cardiology Consultation: Date of Consultation 01/17/21 Date of Admission 01/17/2021 Attending Physician Bibi Perez DO Admitting Physician Dora Lima MD Consulting Physician DORA VERDE JR, MD HPI: Time Seen by a Provider: 15:07 Chief Complaint: Reason for consultation: Acute on chronic systolic heart failure and elevated troponin. Had the pleasure of seeing John on the medical/surgical floor today. She normally follows with one of my partners, Dr. Santiago, but has not been seen in over a year because she was homeless. She recently moved into an apartment. Over the past 4 days she has been having increasing abdominal distention as well as orthopnea and paroxysmal nocturnal dyspnea. She tried using more pillows but nothing would seem to help her breathing at night. Last evening she was quite short of breath and came to the emergency room for further evaluation. She was found to have a borderline elevated troponin level and a cardiology consultation was requested. She denies any chest discomfort. She has had some occasional lightheaded spells but denies syncope. She denies dyspnea on exertion or lower extremity edema. She states that from time to time she will forget to take her medication. She had been on losartan in the past but ran out of refills. She smokes approximately 5 cigarettes/day. She denies any illegal drug use. Certain portions of this document may have been dictated utilizing voice recognition technology. Inherent to this technology, typographical and grammatical errors may exist. As much as I am diligent to identify and correct these mistakes, some errors may remain in the document. Review of Systems-Cardiology Review of Systems Other comments Review of 10 organ systems is as per the history of present illness, otherwise negative. All Other Systems Reviewed Negative Unless Noted: Yes [id number] Hx Patient Social History Smoking Status: Current Everyday Smoker Former smoker/When Quit: Jul 21, 2015 2nd Hand Smoke Exposure: No Have you traveled recently?: No Alcohol Use?: No Pt feels they are or have been: No Tobacco type used: Cigarettes Immunizations Up To Date Tetanus Booster (TDap): Less than 5yrs Date of Pneumonia Vaccine: Sep 15, 2015 Past Medical History PMH As described under Assessment. Family Medical History Family Medical History: The patient does not know of any family history of premature coronary artery disease. Family History: Hypertension 19 FATHER 19 MOTHER Myocardial infarction 19 FATHER Allergies and Home Medications Allergies Coded Allergies: No Known Drug Allergies (Unverified , 11/20/11) Home Medications Albuterol Sulfate 2.5 Mg/3 Ml Vial.neb, 2.5 MG INH Q4H PRN for WHEEZING Prescribed by: JESUS WILLSON on 06/01/191805 Amoxicillin 500 Mg Capsule, 500 MG PO TID Prescribed by: GUIDO LOVING on 05/15/201718 Enalapril Maleate 2.5 Mg Tablet, 2.5 MG PO DAILY, (Reported) Furosemide 40 Mg Tablet, 40 MG PO DAILY, (Reported) Furosemide 40 Mg Tablet, 40 MG PO DAILY Prescribed by: JESUS WILLSON on 06/01/191805 Furosemide 40 Mg Tablet, 40 MG PO DAILY Prescribed by: JUAN LUIS HATHAWAY on 12/31/20111 Ibuprofen 200 Mg Tablet, 600-800 MG PO TID PRN for PAIN, (Reported) TAKES 3-4 (200MG) TABLETS Metformin HCl 500 Mg Tablet, 500 MG PO DAILY Prescribed by: JUAN LUIS HATHAWAY on 12/31/20115 Metoprolol Succinate 50 Mg Tab.er.24h, 50 MG PO DAILY Prescribed by: JUAN LUIS HATHAWAY on 12/31/20111 Metoprolol Tartrate 25 Mg Tablet, 25 MG PO BID, (Reported) Multivitamin 1 Each Capsule, 1 TAB PO DAILY, (Reported) Naproxen 500 Mg Tablet, 500 MG PO BID PRN for PAIN-SEVERE (8-10) Prescribed by: GUIDO LOVING on 05/15/201718 Naproxen Sodium 550 Mg Tablet, 550 MG PO BID Prescribed by: JF HANSON on 10/02/18 154 Potassium Chloride 10 Meq Tab.er.prt, 10 MEQ PO DAILY, (Reported) Potassium Chloride 20 Meq Tablet.er, 20 MEQ PO DAILY Prescribed by: JESUS WILLSON on 06/01/191805 Prednisone 20 Mg Tab, 40 MG PO DAILY Prescribed by: JF HANSON on 10/02/181542 Patient Home Medication List Home Medication List Reviewed: Yes Exam Vital Signs Vital Signs Date Time Temp Pulse Resp B/P (MAP) Pulse Ox O2 Delivery O2 Flow Rate FiO2 01/17/21 12:38 82 01/17/21 11:26 36.6 18 119/82 (94) 100 Room Air 01/17/21 07:30 2.00 Physical Exam General: Alert. No acute distress. Well nourished and appears stated age. Eye: Extraocular movements are intact. Conjunctivae are clear. There are no xanthelasma. HENT: Normocephalic. Atraumatic. Carotid pulsations 2/2 without bruits. Neck: Jugular venous pressure does not appear elevated. No thyromegaly appreciated. Respiratory: Lungs are clear to auscultation. Respirations are non-labored. Breath sounds are equal. Symmetrical chest wall expansion. Cardiovascular: Normal rate. Regular rhythm. 2/6 systolic ejection murmur. No gallop. Point of maximal impulse is not appear displaced. Good pulses equal in all extremities. Trace bilateral pretibial edema. Gastrointestinal: Soft. Normal bowel sounds. Skin: Skin turgor is normal. There is no pallor. Musculoskeletal: No kyphosis or scoliosis appreciated. Neurologic: Alert and oriented to person, place, time. Cranial nerves 3-12 appear grossly intact. The patient has good motor tone strength in the upper and lower extremities bilaterally. Psychiatric: Cooperative. Appropriate mood & affect. Labs Laboratory Tests Test 01/17/21 00:53 01/17/21 01:05 01/17/21 01:07 01/17/21 05:49 Range/Units Influenza Type A (RT-PCR) Not Detected Not Detecte Influenza Type B (RT-PCR) Not Detected Not Detecte SARS-CoV-2 RNA (RT-PCR) Not Detected Not Detecte C-Reactive Protein High Sensitivity 1.15 H 0.00-0.50 MG/DL White Blood Count 11.8 H 4.3-11.0 10^3/uL Red Blood Count 4.67 3.80-5.11 10^6/uL Hemoglobin 13.2 11.5-16.0 g/dL Hematocrit 42 35-52 % Mean Corpuscular Volume 90 80-99 fL Mean Corpuscular Hemoglobin 28 25-34 pg Mean Corpuscular Hemoglobin Concent 32 32-36 g/dL Red Cell Distribution Width 15.7 H 10.0-14.5 % Platelet Count 204 130-400 10^3/uL Mean Platelet Volume 12.2 9.0-12.2 fL Immature Granulocyte % (Auto) 1 % Neutrophils (%) (Auto) 51 42-75 % Lymphocytes (%) (Auto) 37 12-44 % Monocytes (%) (Auto) 8 0-12 % Eosinophils (%) (Auto) 2 0-10 % Basophils (%) (Auto) 1 0-10 % Neutrophils # (Auto) 6.0 1.8-7.8 10^3/uL Lymphocytes # (Auto) 4.4 H 1.0-4.0 10^3/uL Monocytes # (Auto) 1.0 0.0-1.0 10^3/uL Eosinophils # (Auto) 0.3 0.0-0.3 10^3/uL Basophils # (Auto) 0.1 0.0-0.1 10^3/uL Immature Granulocyte # (Auto) 0.1 0.0-0.1 10^3/uL Blood Gas Puncture Site L RAD Blood Gas Patient Temperature 94 Arterial Blood pH 7.37 7.37-7.43 Arterial Blood Partial Pressure CO2 41 35-45 MMHG Arterial Blood Partial Pressure O2 30 *L 79-93 MMHG Arterial Blood HCO3 23 23-27 MMOL/L Arterial Blood Total CO2 24.4 21.0-31.0 MMOL/L Arterial Blood Oxygen Saturation 38 L 94-100 % Arterial Blood Base Excess -1.4 -2.5-2.5 MMOL/L Jeffery Test YES-POS Blood Gas Ventilator Setting NO Blood Gas Inspired Oxygen ROOM Sodium Level 141 135-145 MMOL/L Potassium Level 3.7 3.6-5.0 MMOL/L Chloride Level 104 98-107 MMOL/L Carbon Dioxide Level 21 21-32 MMOL/L Anion Gap 16 H 5-14 MMOL/L Blood Urea Nitrogen 20 H 7-18 MG/DL Creatinine 1.34 H 0.60-1.30 MG/DL Estimat Glomerular Filtration Rate 41 BUN/Creatinine Ratio 15 Glucose Level 256 H 70-105 MG/DL Calcium Level 9.4 8.5-10.1 MG/DL Corrected Calcium 9.4 8.5-10.1 MG/DL Total Bilirubin 0.9 0.1-1.0 MG/DL Aspartate Amino Transf (AST/SGOT) 67 H 5-34 U/L Alanine Aminotransferase (ALT/SGPT) 68 H 0-55 U/L Alkaline Phosphatase 243 H 40-136 U/L Troponin I 0.060 H <0.028 NG/ML B-Type Natriuretic Peptide 2620.3 H <100.0 PG/ML Total Protein 7.2 6.4-8.2 GM/DL Albumin 4.0 3.2-4.5 GM/DL Glucometer 234 H 70-110 MG/DL Test 01/17/21 07:11 01/17/21 10:43 01/17/21 13:07 Range/Units White Blood Count 9.6 4.3-11.0 10^3/uL Red Blood Count 4.21 3.80-5.11 10^6/uL Hemoglobin 11.9 11.5-16.0 g/dL Hematocrit 37 35-52 % Mean Corpuscular Volume 87 80-99 fL Mean Corpuscular Hemoglobin 28 25-34 pg Mean Corpuscular Hemoglobin Concent 32 32-36 g/dL Red Cell Distribution Width 15.4 H 10.0-14.5 % Platelet Count 170 130-400 10^3/uL Mean Platelet Volume 12.0 9.0-12.2 fL Immature Granulocyte % (Auto) 1 % Neutrophils (%) (Auto) 67 42-75 % Lymphocytes (%) (Auto) 23 12-44 % Monocytes (%) (Auto) 7 0-12 % Eosinophils (%) (Auto) 2 0-10 % Basophils (%) (Auto) 1 0-10 % Neutrophils # (Auto) 6.4 1.8-7.8 10^3/uL Lymphocytes # (Auto) 2.2 1.0-4.0 10^3/uL Monocytes # (Auto) 0.7 0.0-1.0 10^3/uL Eosinophils # (Auto) 0.2 0.0-0.3 10^3/uL Basophils # (Auto) 0.1 0.0-0.1 10^3/uL Immature Granulocyte # (Auto) 0.1 0.0-0.1 10^3/uL Sodium Level 142 135-145 MMOL/L Potassium Level 3.4 L 3.6-5.0 MMOL/L Chloride Level 104 98-107 MMOL/L Carbon Dioxide Level 25 21-32 MMOL/L Anion Gap 13 5-14 MMOL/L Blood Urea Nitrogen 22 H 7-18 MG/DL Creatinine 1.07 0.60-1.30 MG/DL Estimat Glomerular Filtration Rate 53 BUN/Creatinine Ratio 21 Glucose Level 177 H 70-105 MG/DL Calcium Level 9.1 8.5-10.1 MG/DL Corrected Calcium 9.3 8.5-10.1 MG/DL Total Bilirubin 0.8 0.1-1.0 MG/DL Aspartate Amino Transf (AST/SGOT) 49 H 5-34 U/L Alanine Aminotransferase (ALT/SGPT) 63 H 0-55 U/L Alkaline Phosphatase 223 H 40-136 U/L Troponin I 0.046 H 0.038 H <0.028 NG/ML Total Protein 6.8 6.4-8.2 GM/DL Albumin 3.7 3.2-4.5 GM/DL Glucometer 147 H 70-110 MG/DL Triglycerides Level 187 H <150 MG/DL VLDL Cholesterol 37 5-40 MG/DL Radiology She had an electrocardiogram in the emergency room but I cannot locate the paper copy and the electronic copy has not been transferred into the the electronic medical record. ECHOCARDIOGRAM (03/26/2020): 1. The left ventricle is dilated with normal wall thickness. The is moderate left ventricular systolic dysfunction with an estimated ejection fraction of 35- 40%. 2. Doppler parameters are consistent with grade 1 diastolic dysfunction. 3. The left atrium is mildly dilated at 4.1 cm. 4. There is moderate to severe mitral regurgitation. 5. The estimated pulmonary artery systolic pressure is 35-40 mmHg. Diagnosis/Problems Diagnosis/Problems (1) Troponin level elevated Assessment & Plan: Her troponin level was borderline elevated. This is in the setting of acute kidney injury on chronic kidney disease accompanied by probable heart failure. I suspect this is noncardiac elevation of the troponin and does not represent an acute myocardial infarction. However, if she has and a significant decline in her ejection fraction, then we may need to consider further evaluation with a cardiac catheterization. I should note, she had a cardiac catheterization in 2016 and this only showed mild coronary artery disease and she did not require any revascularization. (2) Acute on chronic systolic heart failure Assessment & Plan: Her BNP is elevated. She seems to be having primarily right-sided heart failure. She has been taking metoprolol tartrate at home. I will change this over to metoprolol succinate which is more appropriate for systolic heart failure. I will restart her losartan at a low dose. I will obtain a follow-up echocardiogram in the morning. At some point, we will need to consider starting her on spironolactone. I agree with intravenous diuresis which has been ordered by the hospitalist. (3) Cardiomyopathy Assessment & Plan: I will make adjustments to her guideline directed medical therapy as outlined above. (4) Coronary artery disease without angina pectoris Assessment & Plan: As above, she previously had mild coronary artery disease at cardiac catheterization in 2016. I recommend she continue on aspirin and beta- christel. I will also obtain a lipid panel. I suspect she would benefit from at least a low-dose of statin medication. (5) Mitral regurgitation Assessment & Plan: This was moderate to severe about 10 months ago. I will obtain a follow-up echocardiogram as above. (6) Acute kidney injury superimposed on chronic kidney disease Assessment & Plan: I suspect this may have caused the small bump in her troponin level. We will need to watch her renal function closely with the intravenous diuretic. (7) Cardiac defibrillator in situ Assessment & Plan: We will make arrangements to get her reestablished in our pacemaker monitoring clinic. She told me that she just got her remote monitor out of storage. (8) Cigarette smoker Assessment & Plan: Cigarette smoking cessation was encouraged to the patient. DORA VERDE JR, MD Jan 17, 2021 15:12
[2021-01-17] MEDS ORDERED: LOSARTAN 25 MG (COZAAR) TAB PO NR (15:30)
[2021-01-17] MEDS: ENOXAPARIN 80 MG/0.8 ML (LOVENOX) SYR SC SCH (16:04)
[2021-01-17 16:16] VITALS: BP 112/85
[2021-01-17 20:06] VITALS: BP 115/82
[2021-01-17 23:58] VITALS: BP 121/84
[2021-01-18 04:24] VITALS: BP 110/77
[2021-01-18 04:35] LABS: BASOPHILS # (AUTO) 0.1 10^3/uL (0.0-0.1); BASOPHILS % (AUTO) 1 % (0-10); EOSINOPHILS # (AUTO) 0.4 10^3/uL (0.0-0.3); EOSINOPHILS % (AUTO) 4 % (0-10); HEMATOCRIT 38 % (35-52); HEMOGLOBIN 11.9 g/dL (11.5-16.0); LYMPHOCYTES # (AUTO) 3.2 10^3/uL (1.0-4.0); LYMPHOCYTES % (AUTO) 32 % (12-44); MEAN CORPUSCULAR HEMOGLOBIN 28 pg (25-34); MEAN CORPUSCULAR HGB CONC 32 g/dL (32-36); MEAN CORPUSCULAR VOLUME 88 fL (80-99); MEAN PLATELET VOLUME 11.8 fL (9.0-12.2); MONOCYTES # (AUTO) 0.6 10^3/uL (0.0-1.0); MONOCYTES % (AUTO) 7 % (0-12); NEUTROPHILS # (AUTO) 5.6 10^3/uL (1.8-7.8); NEUTROPHILS % (AUTO) 57 % (42-75); PLATELET COUNT 172 10^3/uL (130-400); WHITE BLOOD COUNT 9.8 10^3/uL (4.3-11.0)
[2021-01-18 04:52] LABS: ALBUMIN 3.4 GM/DL (3.2-4.5); POTASSIUM 3.9 MMOL/L (3.6-5.0)
[2021-01-18 04:54] LABS: CALCIUM 8.5 MG/DL (8.5-10.1)
[2021-01-18 04:55] LABS: TOTAL PROTEIN 6.3 GM/DL (6.4-8.2)
[2021-01-18 04:57] LABS: BILIRUBIN,TOTAL 0.8 MG/DL (0.1-1.0)
[2021-01-18 04:58] LABS: CREATININE SERUM 1.25 MG/DL (0.60-1.30)
[2021-01-18] MEDS: inSUlin ASPART (NovoLOG) 1 UNIT/0.01 ML (CHARGE PER UNIT) SC SCH ×4 (05:35→21:22)
[2021-01-18] MEDS: ENOXAPARIN 80 MG/0.8 ML (LOVENOX) SYR SC SCH ×2 (05:44→17:57)
--- NOTE | 2021-01-18 05:56 | Progress Note - Hospitalist ---
Subjective HPI/CC On Admission Date Seen by Provider: Jan 18, 2021 Time Seen by Provider: 10:30 Chief complaint: Shortness of breath from congestive heart failure History of present illness: This is a 55-year-old white female of [facility] who has a history of congestive heart failure in a patient of Dr. Santiago who presented to the ER with shortness of breath. She reports increased edema and abdominal girth. Patient was found to have acute exacerbation congestive heart failure with elevated troponin. Dr. Travis has been consulted. She previously was homeless but now she has an apartment. Check meds and labs and echocardiogram from March of last year. She has not seen Dr. Stubbs for over a year. Subjective/Events-last exam Pt doing a little better Just returned from cardiac testing No SOB Feels like she is doing much better Awaiting cardiology plan Review of Systems General: Fatigue Pulmonary: Dyspnea Objective Exam Vital Signs Vital Signs Date Time Temp Pulse Resp B/P (MAP) Pulse Ox O2 Delivery O2 Flow Rate FiO2 01/19/21 04:30 36.7 78 18 124/72 (89) 98 Room Air 01/18/21 08:18 2.00 Capillary Refill : Less Than 3 Seconds General Appearance: No Apparent Distress, WD/WN, Chronically ill Respiratory: Lungs Clear, Decreased Breath Sounds Cardiovascular: Regular Rate, Rhythm Neurologic/Psychiatric: Alert, Oriented x3, No Motor/Sensory Deficits, Normal Mood/Affect Results/Procedures Lab Patient resulted labs reviewed. Assessment/Plan Assessment and Plan Assess & Plan/Chief Complaint Assessment: Acute exacerbation of congestive heart failure Cardiomyopathy Permanent pacemaker Homelessness now living in an apartment Current smoker Plan: Replace potassium Appreciate cardiology 01/18/2021: Continue supportive care Appreciate cardiology Discharge hopefully tomorrow Diagnosis/Problems Diagnosis/Problems (1) Cardiomyopathy YENI NEWMAN DO Jan 18, 2021 05:55
[2021-01-18] MEDS: FUROSEMIDE 40 MG/4 ML INJ (LASIX) IVP SCH (08:03)
[2021-01-18] MEDS: KCL 20 MEQ TAB (K-DUR) PO SCH ×3 (08:03→17:57)
[2021-01-18] MEDS: ASPIRIN 81 MG CHEW (CHILDREN'S ASA) PO SCH (08:03)
[2021-01-18 08:18] VITALS: BP 121/83
[2021-01-18] MEDS ORDERED: LOSARTAN 25 MG (COZAAR) TAB PO SCH (09:00)
[2021-01-18 11:30] VITALS: BP 111/72
[2021-01-18] MEDS ORDERED: LOSA25TA41 PO (15:24)
[2021-01-18] MEDS ORDERED: POTA10CA43 PO (15:24)
[2021-01-18] MEDS ORDERED: ROSU10TA28 PO (15:24)
[2021-01-18] MEDS ORDERED: RT-ALBUINH IH (15:24)
[2021-01-18 16:00] VITALS: BP 73/72
--- NOTE | 2021-01-18 17:53 | Cardiology Progress Note ---
Progress Note-Cardiology Events since last exam Date Seen by Provider: Jan 18, 2021 Time Seen by Provider: 17:48 Events since last exam We are seeing her due to elevated troponin and heart failure. Overnight her breathing improved. She denies chest discomfort, palpitations, or syncope. Her abdominal bloating has improved. She has mild ankle edema. Certain portions of this document may have been dictated utilizing voice recognition technology. Inherent to this technology, typographical and grammatical errors may exist. As much as I am diligent to identify and correct these mistakes, some errors may remain in the document. Vitals Last set of Vitals Signs Vital Signs 01/18/21 01/18/21 08:18 16:00 Temp 36.4 Pulse 81 Resp 22 B/P (MAP) 73/72 (72) Pulse Ox 95 O2 Delivery Room Air O2 Flow Rate 2.00 Labs Labs Laboratory Tests 01/18/21 04:26 Exam Vital Signs Vital Signs Date Time Temp Pulse Resp B/P (MAP) Pulse Ox O2 Delivery O2 Flow Rate FiO2 01/18/21 16:00 36.4 81 22 73/72 (72) 95 Room Air 01/18/21 08:18 2.00 Physical Exam General: Alert. No acute distress. Eye: No xanthelasma. HENT: Normocephalic. Neck: Jugular venous pressure does not appear elevated. Respiratory: Lungs are clear to auscultation. Respirations are non-labored. Breath sounds are equal. Symmetrical chest wall expansion. Cardiovascular: Normal rate. Regular rhythm. 2/6 systolic ejection murmur. No gallop. 1+ bilateral pretibial edema. Gastrointestinal: Soft. Normal bowel sounds. Skin: Warm. Dry. Neurologic: Alert and oriented to person, place, time. Cranial nerves 3-11 grossly intact. Psychiatric: Cooperative. Appropriate mood & affect. Labs Laboratory Tests Test 01/17/21 20:09 01/18/21 04:26 01/18/21 11:28 01/18/21 16:51 Range/Units Glucometer 224 H 227 H 138 H 70-110 MG/DL White Blood Count 9.8 4.3-11.0 10^3/uL Red Blood Count 4.24 3.80-5.11 10^6/uL Hemoglobin 11.9 11.5-16.0 g/dL Hematocrit 38 35-52 % Mean Corpuscular Volume 88 80-99 fL Mean Corpuscular Hemoglobin 28 25-34 pg Mean Corpuscular Hemoglobin Concent 32 32-36 g/dL Red Cell Distribution Width 15.6 H 10.0-14.5 % Platelet Count 172 130-400 10^3/uL Mean Platelet Volume 11.8 9.0-12.2 fL Immature Granulocyte % (Auto) 0 % Neutrophils (%) (Auto) 57 42-75 % Lymphocytes (%) (Auto) 32 12-44 % Monocytes (%) (Auto) 7 0-12 % Eosinophils (%) (Auto) 4 0-10 % Basophils (%) (Auto) 1 0-10 % Neutrophils # (Auto) 5.6 1.8-7.8 10^3/uL Lymphocytes # (Auto) 3.2 1.0-4.0 10^3/uL Monocytes # (Auto) 0.6 0.0-1.0 10^3/uL Eosinophils # (Auto) 0.4 H 0.0-0.3 10^3/uL Basophils # (Auto) 0.1 0.0-0.1 10^3/uL Immature Granulocyte # (Auto) 0.0 0.0-0.1 10^3/uL Sodium Level 141 135-145 MMOL/L Potassium Level 3.9 3.6-5.0 MMOL/L Chloride Level 104 98-107 MMOL/L Carbon Dioxide Level 26 21-32 MMOL/L Anion Gap 11 5-14 MMOL/L Blood Urea Nitrogen 26 H 7-18 MG/DL Creatinine 1.25 0.60-1.30 MG/DL Estimat Glomerular Filtration Rate 44 BUN/Creatinine Ratio 21 Glucose Level 136 H 70-105 MG/DL Calcium Level 8.5 8.5-10.1 MG/DL Corrected Calcium 9.0 8.5-10.1 MG/DL Total Bilirubin 0.8 0.1-1.0 MG/DL Aspartate Amino Transf (AST/SGOT) 30 5-34 U/L Alanine Aminotransferase (ALT/SGPT) 46 0-55 U/L Alkaline Phosphatase 179 H 40-136 U/L Total Protein 6.3 L 6.4-8.2 GM/DL Albumin 3.4 3.2-4.5 GM/DL Radiology ECHOCARDIOGRAM (preliminary): There is severe left ventricular systolic dysfunction with an estimated ejection fraction of 20-25%. There is at least moderate mitral regurgitation and severe tricuspid regurgitation. The patient's name was not spelled correctly on the report and therefore, I need to wait until the echo techs return tomorrow to correct the spelling of her name and then I can sign the report. Diagnosis/Problems Diagnosis/Problems (1) Troponin level elevated Assessment & Plan: Her troponin levels are essentially flat. This is consistent with a probable type II non-ST elevation myocardial infarction secondary to supply/demand mismatch from her acute heart failure. She had a cardiac catheterization in 2016 and this only showed mild coronary artery disease and she did not require any revascularization. I recommend we continue guideline directed medical therapy with aspirin, beta-christel, and statin medication. (2) Acute on chronic systolic heart failure Assessment & Plan: Symptoms gradually improving. I will obtain a follow-up chest x-ray tomorrow. I did start losartan but her blood pressure is somewhat low today so I will decrease the dose. We will need to watch her renal function closely. She would benefit from aldosterone antagonist but I am somewhat concerned that if we make too many medication changes during this admission, she would be at higher risk of worsening kidney function. (3) Cardiomyopathy Assessment & Plan: Her ejection fraction seems to have declined. This may be related to the fact the patient could not consistently get her medications. Hopefully, this will turn around when we resume her medication. If her ejection fraction does not get better and she continues to have episodes of heart failure, we may need to send her for a transplant consultation. (4) Mitral regurgitation Assessment & Plan: This continues to be at least moderate to severe. This could be contributing to her heart failure symptoms. She might also benefit f rom a Jenny-clip. However, given her current social situation, this might be difficult to arrange. (5) Coronary artery disease without angina pectoris Assessment & Plan: As above, she previously had mild coronary artery disease at cardiac catheterization in 2016. I recommend she continue on aspirin and beta- christel. Her cholesterol level is actually quite low on no medication. (6) Acute kidney injury superimposed on chronic kidney disease Assessment & Plan: I suspect this may have contributed to the small bump in her troponin level. We will need to watch her renal function closely with the intravenous diuretic. (7) Cardiac defibrillator in situ Assessment & Plan: We will make arrangements to get her reestablished in our outpatient remote pacemaker monitoring clinic. She told me that she just got her remote monitor out of storage. (8) Cigarette smoker Assessment & Plan: Cigarette smoking cessation was encouraged to the patient. DORA VERDE JR, MD Jan 18, 2021 17:53
[2021-01-18 20:00] VITALS: BP 117/82
[2021-01-19 00:27] VITALS: BP 101/62
[2021-01-19 04:30] VITALS: BP 124/72
[2021-01-19] MEDS: ENOXAPARIN 80 MG/0.8 ML (LOVENOX) SYR SC SCH (04:56)
[2021-01-19] MEDS: inSUlin ASPART (NovoLOG) 1 UNIT/0.01 ML (CHARGE PER UNIT) SC SCH ×2 (06:00→11:36)
[2021-01-19 06:26] LABS: BASOPHILS # (AUTO) 0.1 10^3/uL (0.0-0.1); BASOPHILS % (AUTO) 1 % (0-10); EOSINOPHILS # (AUTO) 0.4 10^3/uL (0.0-0.3); EOSINOPHILS % (AUTO) 4 % (0-10); HEMATOCRIT 41 % (35-52); HEMOGLOBIN 13.1 g/dL (11.5-16.0); LYMPHOCYTES % (AUTO) 31 % (12-44); MEAN CORPUSCULAR HEMOGLOBIN 28 pg (25-34); MEAN CORPUSCULAR HGB CONC 32 g/dL (32-36); MEAN CORPUSCULAR VOLUME 88 fL (80-99); MEAN PLATELET VOLUME 12.2 fL (9.0-12.2); MONOCYTES # (AUTO) 0.8 10^3/uL (0.0-1.0); MONOCYTES % (AUTO) 8 % (0-12); NEUTROPHILS # (AUTO) 5.5 10^3/uL (1.8-7.8); NEUTROPHILS % (AUTO) 56 % (42-75); PLATELET COUNT 205 10^3/uL (130-400); WHITE BLOOD COUNT 9.8 10^3/uL (4.3-11.0)
[2021-01-19 06:50] LABS: ALBUMIN 3.5 GM/DL (3.2-4.5); BILIRUBIN,TOTAL 0.9 MG/DL (0.1-1.0); CREATININE SERUM 1.09 MG/DL (0.60-1.30); POTASSIUM 4.4 MMOL/L (3.6-5.0); TOTAL PROTEIN 6.7 GM/DL (6.4-8.2)
[2021-01-19 08:43] VITALS: BP 119/72
[2021-01-19] MEDS ORDERED: LOSARTAN 25 MG (COZAAR) TAB PO SCH (09:00)
[2021-01-19] MEDS: FUROSEMIDE 40 MG/4 ML INJ (LASIX) IVP SCH (09:29)
[2021-01-19] MEDS: KCL 20 MEQ TAB (K-DUR) PO SCH ×2 (09:29→12:36)
[2021-01-19] MEDS: ASPIRIN 81 MG CHEW (CHILDREN'S ASA) PO SCH (09:29)
--- NOTE | 2021-01-19 09:56 | Cardiology Progress Note ---
Progress Note-Cardiology Events since last exam Date Seen by Provider: Jan 19, 2021 Time Seen by Provider: 09:54 Events since last exam We are seeing her due to heart failure. Her breathing and abdominal bloating continue to improve. She denies chest pain, palpitations, syncope, or ankle edema. She plans to make this hospitalization her quitting point for smoking cigarettes. Vitals Last set of Vitals Signs Vital Signs 01/19/21 15:38 Temp 36.1 Pulse 83 Resp 18 B/P (MAP) 120/71 Pulse Ox 97 O2 Delivery Room Air O2 Flow Rate 0.00 Labs Labs Laboratory Tests 01/19/21 05:33 Exam Vital Signs Vital Signs Date Time Temp Pulse Resp B/P (MAP) Pulse Ox O2 Delivery O2 Flow Rate FiO2 01/19/21 15:38 36.1 83 18 120/71 97 Room Air 0.00 Physical Exam General: Alert. No acute distress. Eye: No xanthelasma. HENT: Normocephalic. Neck: Jugular venous pressure does not appear elevated. Respiratory: Lungs are clear to auscultation. Respirations are non-labored. Breath sounds are equal. Symmetrical chest wall expansion. Cardiovascular: Normal rate. Regular rhythm. No murmur. No gallop. No edema. Gastrointestinal: Soft. Normal bowel sounds. Skin: Warm. Dry. Neurologic: Alert and oriented to person, place, time. Cranial nerves 3-11 grossly intact. Psychiatric: Cooperative. Appropriate mood & affect. Labs Laboratory Tests Test 01/18/21 21:07 01/19/21 05:32 01/19/21 05:33 01/19/21 11:03 Range/Units Glucometer 184 H 137 H 158 H 70-110 MG/DL White Blood Count 9.8 4.3-11.0 10^3/uL Red Blood Count 4.67 3.80-5.11 10^6/uL Hemoglobin 13.1 11.5-16.0 g/dL Hematocrit 41 35-52 % Mean Corpuscular Volume 88 80-99 fL Mean Corpuscular Hemoglobin 28 25-34 pg Mean Corpuscular Hemoglobin Concent 32 32-36 g/dL Red Cell Distribution Width 15.6 H 10.0-14.5 % Platelet Count 205 130-400 10^3/uL Mean Platelet Volume 12.2 9.0-12.2 fL Immature Granulocyte % (Auto) 0 % Neutrophils (%) (Auto) 56 42-75 % Lymphocytes (%) (Auto) 31 12-44 % Monocytes (%) (Auto) 8 0-12 % Eosinophils (%) (Auto) 4 0-10 % Basophils (%) (Auto) 1 0-10 % Neutrophils # (Auto) 5.5 1.8-7.8 10^3/uL Lymphocytes # (Auto) 3.0 1.0-4.0 10^3/uL Monocytes # (Auto) 0.8 0.0-1.0 10^3/uL Eosinophils # (Auto) 0.4 H 0.0-0.3 10^3/uL Basophils # (Auto) 0.1 0.0-0.1 10^3/uL Immature Granulocyte # (Auto) 0.0 0.0-0.1 10^3/uL Sodium Level 139 135-145 MMOL/L Potassium Level 4.4 3.6-5.0 MMOL/L Chloride Level 106 98-107 MMOL/L Carbon Dioxide Level 25 21-32 MMOL/L Anion Gap 8 5-14 MMOL/L Blood Urea Nitrogen 22 H 7-18 MG/DL Creatinine 1.09 0.60-1.30 MG/DL Estimat Glomerular Filtration Rate 52 BUN/Creatinine Ratio 20 Glucose Level 130 H 70-105 MG/DL Calcium Level 9.0 8.5-10.1 MG/DL Corrected Calcium 9.4 8.5-10.1 MG/DL Total Bilirubin 0.9 0.1-1.0 MG/DL Aspartate Amino Transf (AST/SGOT) 20 5-34 U/L Alanine Aminotransferase (ALT/SGPT) 35 0-55 U/L Alkaline Phosphatase 172 H 40-136 U/L Total Protein 6.7 6.4-8.2 GM/DL Albumin 3.5 3.2-4.5 GM/DL Diagnosis/Problems Diagnosis/Problems (1) Troponin level elevated Assessment & Plan: Her troponin levels are essentially flat. This is consistent with a probable type II non-ST elevation myocardial infarction secondary to supply/demand mismatch from her acute heart failure. She had a cardiac catheterization in 2016 and this only showed mild coronary artery disease and she did not require any revascularization. I recommend we continue guideline directed medical therapy with aspirin, beta-christel, and statin medication. (2) Acute on chronic systolic heart failure Assessment & Plan: Symptoms improved. I have changed her metoprolol tartrate over to carvedilol and restarted losartan. The hospitalist has deemed her ready for discharge. Our office will arrange for follow-up with her regular cosmetologist. At some point, we may want to start spironolactone but since I made two other medication changes during this hospitalization, I am holding off on adding a third medication. (3) Cardiomyopathy Assessment & Plan: Her ejection fraction seems to have declined. This is likely nonischemic given that she had a previous cardiac catheterization that did not show any significant coronary artery disease. This may be related to the fact the patient could not consistently get her medications. Hopefully, this will turn around when we resume her medication. If her ejection fraction does not get better and she continues to have episodes of heart failure, we may need to send her for a transplant consultation. (4) Mitral regurgitation Assessment & Plan: This continues to be at least moderate to severe. This could be contributing to her heart failure symptoms. She might also benefit from a Jenny-clip. However, given her current social situation, this might be difficult to arrange. (5) Coronary artery disease without angina pectoris Assessment & Plan: As above, she previously had mild coronary artery disease at cardiac catheterization in 2016. I recommend she continue on aspirin and beta- christel. Her cholesterol level is actually quite low on no medication. (6) Acute kidney injury superimposed on chronic kidney disease Assessment & Plan: I suspect this may have contributed to the small bump in her troponin level. (7) Cardiac defibrillator in situ Assessment & Plan: We will make arrangements to get her reestablished in our outpatient remote pacemaker monitoring clinic. She told me that she just got her remote monitor out of storage. (8) Cigarette smoker Assessment & Plan: Cigarette smoking cessation was encouraged to the patient. DORA VERDE JR, MD Jan 19, 2021 09:56
--- NOTE | 2021-01-19 10:18 | Diagnostic Imaging Report ---
Indication: Congestive failure. Compared: 01/17/2021 Findings: The heart size stable. Lungs clear. No vascular congestion, edema, pneumonia, effusion or pneumothorax. ICD device stable. No free air beneath the diaphragms. Impression: No acute appearing abnormality. Dictated by: Dictated on workstation # [id number]
[2021-01-19 11:03] VITALS: BP 120/71
[2021-01-19] MEDS ORDERED: POTA20TA8 PO (11:22)
[2021-01-19] MEDS ORDERED: LOSA25TA41 PO (11:22)
[2021-01-19] MEDS ORDERED: ASPI81TA64 PO (11:22)
[2021-01-19] MEDS ORDERED: FURO-124 PO (11:22)
--- NOTE | 2021-01-19 11:23 | Discharge Summary ---
Discharge Summary Hospital Course Was the Problem List Reviewed?: Yes Problems/Dx: (1) Troponin level elevated (2) Acute on chronic systolic heart failure (3) Cardiomyopathy (4) Mitral regurgitation (5) Coronary artery disease without angina pectoris (6) Acute kidney injury superimposed on chronic kidney disease (7) Cardiac defibrillator in situ (8) Cigarette smoker Hospital Course Date of Admission: Jan 17, 2021 at 02:15 Admission Diagnosis : Family Physician/Provider: Chucky Lima MD Date of Discharge: 01/19/21 Discharge Diagnosis: Elevated troponin, exacerbation of congestive heart failure Hospital Course: Hospital course: Pt had a brief hospital course when she was admitted for CHF and SOB, Pt diuresed well, Dr. Travis saw her in consultation, and multiple medications were changed along with Lasix and she will have close follow-up with cardiology at [facility]. Labs and Pending Lab Test: Laboratory Tests 01/18/21 11:28: Glucometer 227H 01/18/21 16:51: Glucometer 138H 01/18/21 21:07: Glucometer 184H 01/19/21 05:32: Glucometer 137H 01/19/21 05:33: White Blood Count 9.8, Red Blood Count 4.67, Hemoglobin 13.1, Hematocrit 41, Mean Corpuscular Volume 88, Mean Corpuscular Hemoglobin 28, Mean Corpuscular Hemoglobin Concent 32, Red Cell Distribution Width 15.6H, Platelet Count 205, Mean Platelet Volume 12.2, Immature Granulocyte % (Auto) 0, Neutrophils (%) (Auto) 56, Lymphocytes (%) (Auto) 31, Monocytes (%) (Auto) 8, Eosinophils (%) (Auto) 4, Basophils (%) (Auto) 1, Neutrophils # (Auto) 5.5, Lymphocytes # (Auto) 3.0, Monocytes # (Auto) 0.8, Eosinophils # (Auto) 0.4H, Basophils # (Auto) 0.1, Immature Granulocyte # (Auto) 0.0, Sodium Level 139, Potassium Level 4.4, Chloride Level 106, Carbon Dioxide Level 25, Anion Gap 8, Blood Urea Nitrogen 22H, Creatinine 1.09, Estimat Glomerular Filtration Rate 52, BUN/Creatinine Ratio 20, Glucose Level 130H, Calcium Level 9.0, Corrected Calcium 9.4, Total Bilirubin 0.9, Aspartate Amino Transf (AST/SGOT) 20, Alanine Aminotransferase (ALT/SGPT) 35, Alkaline Phosphatase 172H, Total Protein 6.7, Albumin 3.5 01/19/21 11:03: Glucometer 158H Home Meds Active Reported Proair Hfa (Albuterol Sulfate) 1 Puff Puff 2 Puff IH Q4H PRN Potassium Chloride 10 Meq Capsule.er 10 Meq PO DAILY LAST FILLED 08/12/2020 #90 90 DAY SUPPLY Losartan Potassium 25 Mg Tablet 25 Mg PO DAILY LAST FILLED 01/29/2020 #90 90 DAY SUPPLY Rosuvastatin Calcium 10 Mg Tablet 10 Mg PO DAILY LAST FILLED 01/29/2020 #90 90 DAY SUPPLY Furosemide 40 Mg Tablet 40 Mg PO DAILY PRN LAST FILLED 08/12/2020 #90 90 DAY SUPPLY Metoprolol Tartrate 25 Mg Tablet 25 Mg PO BID LAST FILLED 08/12/2020 #180 90 DAY SUPPLY Assessment/Pt Instructions PCP in [address] Santiago 2 weeks Discharge Planning: <30 minutes discharge planning Discharge Instructions Discharge Diet: No Restrictions Discharge Physical Examination Vital Signs Vital Signs Date Time Temp Pulse Resp B/P (MAP) Pulse Ox O2 Delivery O2 Flow Rate FiO2 01/19/21 08:43 36.3 77 17 119/72 (88) 97 Room Air 01/19/21 07:30 0.00 General Appearance: No Apparent Distress, WD/WN Allergies: Coded Allergies: No Known Drug Allergies (Unverified , 11/20/11) Discharge Summary Date of Admission Jan 17, 2021 at 02:15 Date of Discharge Discharge Date: Jan 19, 2021 Admission Diagnosis Assessment: Acute exacerbation of congestive heart failure Cardiomyopathy Permanent pacemaker Homelessness now living in an apartment Current smoker Plan: Replace potassium Appreciate cardiology Discharge Diagnosis Assessment: Acute exacerbation of congestive heart failure Cardiomyopathy Permanent pacemaker Homelessness now living in an apartment Current smoker Plan: Replace potassium Appreciate cardiology 01/18/2021: Continue supportive care Appreciate cardiology Discharge hopefully tomorrow (1) Troponin level elevated Assessment & Plan: Her troponin levels are essentially flat. This is consistent with a probable type II non-ST elevation myocardial infarction secondary to supply/demand mismatch from her acute heart failure. She had a cardiac catheter ization in 2016 and this only showed mild coronary artery disease and she did not require any revascularization. I recommend we continue guideline directed medical therapy with aspirin, beta-christel, and statin medication. (2) Acute on chronic systolic heart failure Assessment & Plan: Symptoms gradually improving. I will obtain a follow-up chest x-ray tomorrow. I did start losartan but her blood pressure is somewhat low today so I will decrease the dose. We will need to watch her renal function closely. She would benefit from aldosterone antagonist but I am somewhat concerned that if we make too many medication changes during this admission, she would be at higher risk of worsening kidney function. (3) Cardiomyopathy Assessment & Plan: Her ejection fraction seems to have declined. This may be related to the fact the patient could not consistently get her medications. Hopefully, this will turn around when we resume her medication. If her ejection fraction does not get better and she continues to have episodes of heart failure, we may need to send her for a transplant consultation. (4) Mitral regurgitation Assessment & Plan: This continues to be at least moderate to severe. This could be contributing to her heart failure symptoms. She might also benefit from a Jenny-clip. However, given her current social situation, this might be difficult to arrange. (5) Coronary artery disease without angina pectoris Assessment & Plan: As above, she previously had mild coronary artery disease at cardiac catheterization in 2016. I recommend she continue on aspirin and beta- christel. Her cholesterol level is actually quite low on no medication. (6) Acute kidney injury superimposed on chronic kidney disease Assessment & Plan: I suspect this may have contributed to the small bump in her troponin level. We will need to watch her renal function closely with the intravenous diuretic. (7) Cardiac defibrillator in situ Assessment & Plan: We will make arrangements to get her reestablished in our outpatient remote pacemaker monitoring clinic. She told me that she just got her remote monitor out of storage. (8) Cigarette smoker Assessment & Plan: Cigarette smoking cessation was encouraged to the patient. YENI NEWMAN DO Jan 19, 2021 11:23
[2021-01-19 15:38] VITALS: BP 120/71
[2021-01-22] MEDS ORDERED: ASPI-999 PO (10:26)
[2021-01-22] MEDS ORDERED: FURO40TA4 PO (10:26)
[2021-01-22] MEDS ORDERED: LOSA25TA41 PO (10:36)
[2021-01-22] MEDS ORDERED: POTA-51 PO (10:38)
== END 2021-01-19 15:30 | disposition home or self-care (01) | DRG 291 ==
LOC: EDUNIT# 00:48 → ER 00:50 → 4TH 02:15
PROVIDERS: ADMIT Internal Medicine; ATTEND Internal Medicine
DX: I13.0 Hypertensive heart and chronic kidney disease with heart failure and stage 1 through stage 4 chronic kidney disease, or unspecified chronic kidney disease (principal); I50.23 Acute on chronic systolic (congestive) heart failure; J96.01 Acute respiratory failure with hypoxia; N17.9 Acute kidney failure, unspecified; N18.9 Chronic kidney disease, unspecified; I42.9 Cardiomyopathy, unspecified; I25.10 Atherosclerotic heart disease of native coronary artery without angina pectoris; F17.210 Nicotine dependence, cigarettes, uncomplicated; Z20.822 Contact with and (suspected) exposure to COVID-19; R77.8 Other specified abnormalities of plasma proteins; E11.9 Type 2 diabetes mellitus without complications; I08.1 Rheumatic disorders of both mitral and tricuspid valves; E78.00 Pure hypercholesterolemia, unspecified; K58.9 Irritable bowel syndrome, unspecified; H54.7 Unspecified visual loss; Z82.49 Family history of ischemic heart disease and other diseases of the circulatory system; Z95.810 Presence of automatic (implantable) cardiac defibrillator; Z79.84 Long term (current) use of oral hypoglycemic drugs; Z79.52 Long term (current) use of systemic steroids
CPT/HCPCS: 36415; 71045; 71046; 80053; 80061; 82805; 82947; 83880; 84484; 85025; 86141; 87636; 93005; 93306; 96372; 96374